=== PATIENT | male | born 1965 | race Hispanic/Latino ===

== ENCOUNTER 2018-03-30 08:46 | Emergency (ER) | payer OTHER ==
[2018-03-30] MEDS ORDERED: FENTANYL CITR 100 MCG/2 ML ONE (09:31)
[2018-03-30] MEDS ORDERED: INSULIN -REGULAR HUMAN 50 UNIT/0.5 ML ML ONE (09:31)
[2018-03-30] MEDS ORDERED: ONDANSETRON 4 MG/2 ML VIAL ONE (09:31)
[2018-03-30] MEDS ORDERED: PANTOPRAZOLE 40 MG INJ ONE ×2 (09:32→10:36)
[2018-03-30] MEDS ORDERED: NA CHLORIDE 0.9% 1,000 ML ONE (09:32)
[2018-03-30 09:56] LABS: Absolute Monocytes 0.8 K/uL (0.1-1.3); Absolute Neutrophil 5.3 K/uL (1.8-8.0); Basophils % 0.8 % (0-1.3); Eosinophils % 2.9 % (0-4.4); Hematocrit 21.3 % (39.6-49.0); Lymphocytes % 13.6 % (15.3-44.8); MCH 20.5 pg (27.0-35.0); MCV 68.5 fL (80-100); MPV 8.4 fL (7.6-11.3); Monocytes % 10.4 % (3.3-12.3); RBC Red Blood Cell Count 3.11 M/uL (4.33-5.43)
[2018-03-30 10:04] LABS: Protime INR 0.93
--- NOTE | 2018-03-30 10:18 | RAD REPORT ---
EXAM DESCRIPTION: RAD - Chest Single View - 03/30/2018 10:10 am CLINICAL HISTORY: Abdominal pain, abdominal distention, epigastric pain COMPARISON: May 2011 TECHNIQUE: AP portable chest image was obtained 1008 hours . FINDINGS: Lungs are clear. Heart and vasculature are normal. No measurable pleural effusion and no p neumothorax. No gross bony abnormality seen. No acute aortic findings suspected. IMPRESSION: No acute cardiopulmonary process. No significant interval change.
[2018-03-30 10:23] LABS: ALT/SGPT 11 U/L (12-78); AST/SGOT 15 U/L (15-37); Albumin 3.1 g/dL (3.4-5.0); Alkaline Phosphatase 103 U/L (45-117); BUN Blood Urea Nitrogen 22 mg/dL (7-18); Bicarbonate 26 mmol/L (21-32); Bilirubin Direct < 0.1 mg/dL (0-0.2); Bilirubin Total 0.2 mg/dL (0.2-1.0); CKMB Creatine Kinase MB 3.1 ng/mL (0.3-3.6); Creatine Phosphokinase 163 U/L (39-308); Lipase 169 U/L (73-393); Magnesium 2.1 mg/dL (1.8-2.4); Potassium 4.1 mmol/L (3.5-5.1); Protein, Total 6.4 g/dL (6.4-8.2); Sodium Level 135 mmol/L (136-145)
[2018-03-30 10:25] LABS: Glucose Level 423 mg/dL (74-106)
--- NOTE | 2018-03-30 10:55 | RAD REPORT ---
EXAM DESCRIPTION: US - Abdomen Exam Limited - 03/30/2018 10:15 am CLINICAL HISTORY: Abdominal pain, right upper quadrant pain COMPARISON: None. FINDINGS: No gallstones, sludge or other abnormalities within the gallbladder lumen. There is no wal l thickening or pericholecystic fluid. No common duct stone or biliary tree dilatation identified. IMPRESSION: Normal gallbladder and biliary tree ultrasound.
--- NOTE | 2018-03-30 10:57 | ER ---
Nurse's Notes [facility] Name: Maryam Whitfield Age: 53 yrs Sex: Male : 1965 Arrival Date: 03/30/2018 Time: 08:50 Bed 18 Private MD: None, None Diagnosis: Abdominal tenderness;Duodenitis with bleeding;Duodenal ulcer;Type 1 diabetes mellitus Presentation: 03/30 09:01 Presenting complaint: Patient states: c/o epigastric pain, abd pain X 1 week, described iw as burning pain, 6/10, +nausea, no vomiting or diarrhea, also has been feeling dizzy. Transition of care: patient was not received from another setting of care. Onset of symptoms was March 23, 2018. Risk Assessment: Do you want to hurt yourself or someone else? Patient reports no desire to harm self or others. Initial Sepsis Screen: Does the patient meet any 2 criteria? No. Patient's initial sepsis screen is negative. Does the patient have a suspected source of infection? No. Patient's initial sepsis screen is negative. Care prior to arrival: None. 09:01 Method Of Arrival: Ambulatory iw 09: Acuity: YA 3 iw Historical: - Allergies: 09:04 NKA; iw - Home Meds: 09:04 metformin 1,000 mg Oral TG24 1 tab once daily [Active]; glipizide 5 mg Oral tab 1 tab 2 iw times per day [Active]; pravastatin oral 5 mg oral twice a day [Active]; lisinopril 20 mg Oral tab twice a day [Active]; - PMHx: 09:04 Diabetes - NIDDM; Hypertension; Hyperlipidemia; iw - PSHx: 09:04 None; iw - Immunization history:: Adult Immunizations not up to date. - Social history:: Smoking status: Patient uses tobacco products, smokes one pack cigarettes per day. Patient uses alcohol, on a daily basis. claims drinking about a 6 pack/day. - Ebola Screening: : Patient negative for fever greater than or equal to 101.5 degrees Fahrenheit, and additional compatible Ebola Virus Disease symptoms Patient denies exposure to infectious person Patient denies travel to an Ebola-affected area in the 21 days before illness onset No symptoms or risks identified at this time. - Family history:: not pertinent. Screenin: Abuse screen: Denies threats or abuse. Nutritional screening: No deficits noted. em Tuberculosis screening: No symptoms or risk factors identified. Fall Risk None identified. Assessment: 09:25 General: Appears in no apparent distress. uncomfortable, Behavior is calm, cooperative. em Pain: Complains of pain in left upper quadrant and right upper quadrant and epigastric area Pain currently is 7 out of 10 on a pain scale. Pain began 1 week. Neuro: Level of Consciousness is awake, alert, Oriented to person, place, time, situation. Neuro: Reports dizziness. Cardiovascular: Capillary refill < 3 seconds Patient's skin is warm and dry. Respiratory: Airway is patent Respiratory effort is even, unlabored, Respiratory pattern is regular, symmetrical, Breath sounds are clear bilaterally. GI: Abdomen is round non-distended, Bowel sounds present X 4 quads. Abd is soft X 4 quads Abdomen is tender to palpation in left upper quadrant and right upper quadrant and epigastric area Patient currently denies bloody stool, nausea, rectal bleeding, vomiting. : No signs and/or symptoms were reported regarding the genitourinary system. EENT: No signs and/or symptoms were reported regarding the EENT system. Derm: Skin is intact, Skin is pale. Musculoskeletal: Range of motion: intact in all extremities. 09:45 Reassessment: Patient appears in no apparent distress at this time. I agree with above iw assessment by Daron Dolan LVN. 10:26 Reassessment: Patient appears in no apparent distress at this time. Patient and/or em family updated on plan of care and expected duration. Pain level reassessed. Patient is alert, oriented x 3, equal unlabored respirations, skin warm/dry/pink. finished drinking PO contrast, rates pain 0/10 Patient denies pain at this time. Patient states feeling better. 11:08 Reassessment: Patient appears in no apparent distress at this time. Patient and/or em family updated on plan of care and expected duration. Pain level reassessed. Patient is alert, oriented x 3, equal unlabored respirations, skin warm/dry/pink. Protonix drip initiated, 2nd IV started in left forearm. 11:45 Reassessment: RBC unit started at 50 cc/hr at 1130 and now infusing at 150 cc/hr. Lungs aa5 CTA, respirations even and unlabored. Skin is pale/warm/dry, A \T\ O x 3. See blood transfusion record in pt's chart for Vital Signs and further information. . 13:04 Reassessment: Patient appears in no apparent distress at this time. Patient and/or em family updated on plan of care and expected duration. Pain level reassessed. Dr. Fisher at bedside discussing POC Patient denies pain at this time. 13:10 Reassessment: Patient appears in no apparent distress at this time. Dr. Barker at em bedside. 14:06 Reassessment: Patient appears in no apparent distress at this time. blood transfusion em complete, Dr. Becerril notified, no new orders received. 14:39 Reassessment: unable to give report to nurse at [facility]. em 15:10 Reassessment: 1st unit of FFP started to RAC, pt in NAD, VSS, pt pale, family at bedside, see flowsheet for further charting. 15:45 Reassessment: FFP infusion completed prior to EMS transfer. iw 16:01 Reassessment: Patient appears in no apparent distress at this time. Patient and/or em family updated on plan of care and expected duration. Pain level reassessed. Patient is alert, oriented x 3, equal unlabored respirations, skin warm/dry/pink. report given to EMS, will transport to [facility]. Vital Signs: 09:02 BP 160 / 90; Pulse 96; Resp 18 S; Temp 97.8(TE); Pulse Ox 99% on R/A; Weight 90.72 kg; iw Height 5 ft. 10 in. (177.80 cm); Pain 6/10; 10:21 BP 140 / 81; Pulse 83; Resp 16; Pulse Ox 98% on R/A; em 11:07 BP 149 / 74; Pulse 87; Resp 16; Pulse Ox 98% on R/A; Pain 0/10; em 14:34 BP 153 / 86; Pulse 77; Resp 20; Temp 98.1; Pulse Ox 97% on R/A; Pain 0/10; em 15:37 BP 150 / 86; Pulse 72; Resp 18; Pulse Ox 99% on R/A; Pain 0/10; em 09:02 Body Mass Index 28.70 (90.72 kg, 177.80 cm) ED Course: 08:50 Patient arrived in ED. mr 08:51 None, None is Private Physician. mr 08:56 Daron Dolan LVN is Primary Nurse. em 09:02 Triage completed. iw 09:02 Arm band placed on. iw 09:11 Getachew Becerril MD is Attending Physician. ashley 09:25 Patient has correct armband on for positive identification. Placed in gown. Bed in low em position. Call light in reach. Adult w/ patient. 09:25 Served as a harness tier during rectal exam. em 09:40 Initial lab(s) drawn, by me, sent to lab. T\T\S collected, blood band applied to patient. em Inserted saline lock: 20 gauge in right forearm, using aseptic technique. Blood collected. 09:57 Ultrasound completed. Patient tolerated well. sg3 10:08 X-ray completed. Portable x-ray completed in exam room. Patient tolerated procedure ag1 well. 10:09 XRAY Chest (1 view) In Process Unspecified. EDMS 10:11 Urine collected: clean catch specimen, cloudy, landen colored, EKG done, by ED staff, jb1 reviewed by Getachew Becerril MD. 10:55 Regla Fisher MD is Hospitalizing Provider. ashley 11:[address] via stretcher. cw1 11:59 CT completed. Patient moved back from CT. cw1 14:00 Inserted saline lock: 20 gauge in right antecubital area, using aseptic technique. em Blood collected. 16:03 Patient transferred, IV remains in place. em Administered Medications: 09:48 Drug: ProTONIX 40 mg Route: IVP; Site: right forearm; iw 11:03 Follow up: Response: No adverse reaction em 09:48 Drug: fentaNYL (PF) 25 mcg Route: IVP; Site: right forearm; iw 11:04 Follow up: Response: No adverse reaction; Pain is decreased em 09:48 Drug: Zofran 4 mg Route: IVP; Site: right forearm; iw 11:03 Follow up: Response: No adverse reaction em 10:31 Drug: Insulin Regular Human 10 units {Co-Signature: em (Daron Dolan LVN).} Route: IVP; iw Site: right forearm; 10:54 Drug: ProTONIX 40 mg Route: IVP; Site: right forearm; em 14:04 Follow up: Response: No adverse reaction em 10:55 Drug: ProTONIX 8 mg/hr Route: IV; Rate: 25 ml/hr; Site: right forearm; em 14:01 Drug: Cipro 400 mg Volume: 200 ml; Route: IVPB; Infused Over: 60 mins; Site: right em antecubital; 15:17 Follow up: Response: No adverse reaction; IV Status: Completed infusion; IV Intake: em 200ml 14:01 Drug: Flagyl 500 mg Volume: 100 ml; Route: IVPB; Rate: 200 ml/hr; Infused Over: 30 em mins; Site: right antecubital; 15:04 Follow up: Response: No adverse reaction; IV Status: Completed infusion; IV Intake: em 100ml 14:12 Drug: fentaNYL (PF) 25 mcg Route: IVP; Site: right forearm; em Point of Care Testing: Blood Glucose: 09:24 Blood Glucose: 411 mg/dL; em 10:26 Blood Glucose: 380 mg/dL; em 11:31 Blood Glucose: 126 mg/dL; jb1 14:34 Blood Glucose: 171 mg/dL; em Ranges: Intake: 15:04 IV: 100ml; Total: 100ml. em 15:17 IV: 200ml; Total: 300ml. em Outcome: 10:56 Decision to Hospitalize by Provider. ashley 13:17 ER care complete, transfer ordered by . [facility] 16:03 Transferred by ground EMS to [facility], Transfer form completed. em X-rays sent w/ patient. 16:03 Condition: good 16:03 Instructed on the need for transfer, Demonstrated understanding of instructions. 16:04 Patient left the ED. em Signatures: Dispatcher [employer] Ernie Benson jb1 Getachew Becerril MD MD cha Rivera, Maria mr Munoz, Edgar, CERTIFIED JUVENILE PROBATION OFFICER CERTIFIED JUVENILE PROBATION OFFICER em Susu Luciano RN RN iw Calderon, Audri, RN RN Wendy Herr cw1 Donna Manzanares ag1 Rowan Wesley sg3 Daron Dolan CERTIFIED JUVENILE PROBATION OFFICER em Corrections: (The following items were deleted from the chart) 10:16 10:15 In radiology for Abdomen Limited+US.RAD.BRZ. EDMS sg3 10:40 09:02 BP 160 / 90; Pulse 96bpm; Resp 18bpm; Spontaneous; Pulse Ox 99% RA; 90.72 kg; iw Height 5 ft. 10 in.; BMI: 28.7; Pain 6/10; iw 13:04 09:25 Derm: Skin is intact, Skin is pink, warm \T\ dry. em em 13: 13:03 Reassessment: Patient appears in no apparent distress at this time. em em 15: 15:04 IV Status: Completed infusion em em
--- NOTE | 2018-03-30 10:57 | EDPHYS ---
Physician Documentation [facility] Name: Maryam Whitfield Age: 53 yrs Sex: Male : 1965 Arrival Date: 03/30/2018 Time: 08:50 Bed 18 Private MD: None, None ED Physician Getachew Becerril HPI: 03/30 09:32 This 53 yrs old Male presents to ER via Ambulatory with complaints of ashley Abdominal Pain. 09:32 The patient presents with abdominal pain. ashley Historical: - Allergies: 09:04 NKA; iw - Home Meds: 09:04 metformin 1,000 mg Oral TG24 1 tab once daily [Active]; glipizide 5 mg Oral tab 1 tab 2 iw times per day [Active]; pravastatin oral 5 mg oral twice a day [Active]; lisinopril 20 mg Oral tab twice a day [Active]; - PMHx: 09:04 Diabetes - NIDDM; Hypertension; Hyperlipidemia; iw - PSHx: 09:04 None; iw - Immunization history:: Adult Immunizations not up to date. - Social history:: Smoking status: Patient uses tobacco products, smokes one pack cigarettes per day. Patient uses alcohol, on a daily basis. claims drinking about a 6 pack/day. - Ebola Screening: : Patient negative for fever greater than or equal to 101.5 degrees Fahrenheit, and additional compatible Ebola Virus Disease symptoms Patient denies exposure to infectious person Patient denies travel to an Ebola-affected area in the 21 days before illness onset No symptoms or risks identified at this time. - Family history:: not pertinent. ROS: 09:32 Constitutional: Negative for fever, chills, and weight loss, Eyes: Negative for injury, ashley pain, redness, and discharge, ENT: Negative for injury, pain, and discharge, Neck: Negative for injury, pain, and swelling, Cardiovascular: Negative for chest pain, palpitations, and edema, Respiratory: Negative for shortness of breath, cough, wheezing, and pleuritic chest pain, Back: Negative for injury and pain, : Negative for injury, bleeding, discharge, and swelling, MS/Extremity: Negative for injury and deformity, Neuro: Negative for headache, weakness, numbness, tingling, and seizure, Psych: Negative for depression, anxiety, suicide ideation, homicidal ideation, and hallucinations, Allergy/Immunology: Negative for hives, rash, and allergies, Endocrine: Negative for neck swelling, polydipsia, polyuria, polyphagia, and marked weight changes, Hematologic/Lymphatic: Negative for swollen nodes, abnormal bleeding, and unusual bruising. 09:32 Abdomen/GI: Positive for abdominal pain, nausea and vomiting, abdominal cramps. 09:32 Skin: Positive for pallor. Exam: 09:32 Constitutional: This is a well developed, well nourished patient who is awake, alert, ashley and in no acute distress. Head/Face: Normocephalic, atraumatic. Eyes: Pupils equal round and reactive to light, extra-ocular motions intact. Lids and lashes normal. Conjunctiva and sclera are non-icteric and not injected. Cornea within normal limits. Periorbital areas with no swelling, redness, or edema. ENT: Nares patent. No nasal discharge, no septal abnormalities noted. Tympanic membranes are normal and external auditory canals are clear. Oropharynx with no redness, swelling, or masses, exudates, or evidence of obstruction, uvula midline. Mucous membranes moist. Neck: Trachea midline, no thyromegaly or masses palpated, and no cervical lymphadenopathy. Supple, full range of motion without nuchal rigidity, or vertebral point tenderness. No Meningismus. Chest/axilla: Normal chest wall appearance and motion. Nontender with no deformity. No lesions are appreciated. Cardiovascular: Regular rate and rhythm with a normal S1 and S2. No gallops, murmurs, or rubs. Normal PMI, no JVD. No pulse deficits. Respiratory: Lungs have equal breath sounds bilaterally, clear to auscultation and percussion. No rales, rhonchi or wheezes noted. No increased work of breathing, no retractions or nasal flaring. Back: No spinal tenderness. No costovertebral tenderness. Full range of motion. Male : Normal genitalia with no discharge or lesions. MS/ Extremity: Pulses equal, no cyanosis. Neurovascular intact. Full, normal range of motion. Neuro: Awake and alert, GCS 15, oriented to person, place, time, and situation. Cranial nerves II-XII grossly intact. Motor strength 5/5 in all extremities. Sensory grossly intact. Cerebellar exam normal. Normal gait. Psych: Awake, alert, with orientation to person, place and time. Behavior, mood, and affect are within normal limits. 09:32 Abdomen/GI: Inspection: distension, Bowel sounds: normal, Palpation: mild abdominal tenderness, in the epigastric area, right upper quadrant and left upper quadrant, Rectal exam: rectal tone normal, Stool: guaiac positive, black, hemorrhoid(s), are not appreciated, mass, is not appreciated, swelling, is not appreciated, tenderness, is not appreciated, fecal impaction, is not appreciated, the exam is chaperoned by the nurse, Liver: no appreciated palpable abnormalities, Hernia: not appreciated. Vital Signs: 09:02 BP 160 / 90; Pulse 96; Resp 18 S; Temp 97.8(TE); Pulse Ox 99% on R/A; Weight 90.72 kg; iw Height 5 ft. 10 in. (177.80 cm); Pain 6/10; 10:21 BP 140 / 81; Pulse 83; Resp 16; Pulse Ox 98% on R/A; em 11:07 BP 149 / 74; Pulse 87; Resp 16; Pulse Ox 98% on R/A; Pain 0/10; em 14:34 BP 153 / 86; Pulse 77; Resp 20; Temp 98.1; Pulse Ox 97% on R/A; Pain 0/10; em 15:37 BP 150 / 86; Pulse 72; Resp 18; Pulse Ox 99% on R/A; Pain 0/10; em 09:02 Body Mass Index 28.70 (90.72 kg, 177.80 cm) iw MDM: 09:11 Patient medically screened. [facility] 09:32 Data reviewed: vital signs, nurses notes, lab test result(s), EKG, radiologic studies, [facility] CT scan, plain films, ultrasound. 03/30 09:24 Order name: Occult Blood--Ancillary bd 03/30 09:31 Order name: Basic Metabolic Panel; Complete Time: 10:42 [facility] 03/30 09:31 Order name: CBC with Diff; Complete Time: 12:42 [facility] 03/30 09:31 Order name: Ckmb; Complete Time: 10:42 [facility] 03/30 09:31 Order name: CPK; Complete Time: 10:42 [facility] 03/30 09:31 Order name: LFT's; Complete Time: 10:42 [facility] 03/30 09:31 Order name: Magnesium; Complete Time: 10:42 [facility] 03/30 09:31 Order name: PT-INR; Complete Time: 10:42 03/30 09:31 Order name: Ptt, Activated; Complete Time: 10:42 03/30 09:31 Order name: Troponin (emerg Dept Use Only); Complete Time: 10:42 03/30 09:31 Order name: Lipase; Complete Time: 10:42 03/30 09:31 Order name: Type And Screen ashley 03/30 09:31 Order name: Urine Culture ashley 03/30 09:43 Order name: Urine Dipstick--Ancillary (enter results) 03/30 09:31 Order name: XRAY Chest (1 view); Complete Time: 10:42 ashley 03/30 09:31 Order name: US Abdomen Limited; Complete Time: 11:38 [facility] 03/30 09:31 Order name: CT Abd/Pelvis - W/Contrast [facility] 03/30 09:52 Order name: Bb Add On 03/30 09:58 Order name: CBC Smear Scan; Complete Time: 12:42 [facility] 03/30 10:36 Order name: Packed RBC Leukored -1 [facility] 03/30 11:41 Order name: ABO/RH no charge; Complete Time: 12:42 [facility] 03/30 12:51 Order name: CT; Complete Time: 13:13 [facility] 03/30 13:17 Order name: Bb Add On 03/30 09:31 Order name: EKG; Complete Time: 09:31 ashley 03/30 09:31 Order name: Cardiac monitoring; Complete Time: 09:36 03/30 09:31 Order name: EKG - Nurse/Tech; Complete Time: 10:12 03/30 09:31 Order name: IV Saline Lock; Complete Time: 10:12 03/30 09:31 Order name: Labs collected and sent; Complete Time: 10:12 03/30 09:31 Order name: O2 Per Protocol; Complete Time: 09:36 03/30 09:31 Order name: O2 Sat Monitoring; Complete Time: 09:36 03/30 09:31 Order name: Urine Dipstick-Ancillary (obtain specimen); Complete Time: 10:12 03/30 10:01 Order name: IV Saline Lock - Large Bore; Complete Time: 10:12 03/30 10:11 Order name: Transfuse; Complete Time: 12:18 [facility] 03/30 11:01 Order name: CONS Physician Consult EDMS Administered Medications: 09:48 Drug: ProTONIX 40 mg Route: IVP; Site: right forearm; iw 11:03 Follow up: Response: No adverse reaction em 09:48 Drug: fentaNYL (PF) 25 mcg Route: IVP; Site: right forearm; iw 11:04 Follow up: Response: No adverse reaction; Pain is decreased em 09:48 Drug: Zofran 4 mg Route: IVP; Site: right forearm; iw 11:03 Follow up: Response: No adverse reaction em 10:31 Drug: Insulin Regular Human 10 units {Co-Signature: em (Daron Nayloroz MARKETING DATABASE ANALYST).} Route: IVP; iw Site: right forearm; 10:54 Drug: ProTONIX 40 mg Route: IVP; Site: right forearm; em 14:04 Follow up: Response: No adverse reaction em 10:55 Drug: ProTONIX 8 mg/hr Route: IV; Rate: 25 ml/hr; Site: right forearm; em 14:01 Drug: Cipro 400 mg Volume: 200 ml; Route: IVPB; Infused Over: 60 mins; Site: right em antecubital; 15:17 Follow up: Response: No adverse reaction; IV Status: Completed infusion; IV Intake: em 200ml 14:01 Drug: Flagyl 500 mg Volume: 100 ml; Route: IVPB; Rate: 200 ml/hr; Infused Over: 30 em mins; Site: right antecubital; 15:04 Follow up: Response: No adverse reaction; IV Status: Completed infusion; IV Intake: em 100ml 14:12 Drug: fentaNYL (PF) 25 mcg Route: IVP; Site: right forearm; em Point of Care Testing: Blood Glucose: 09:24 Blood Glucose: 411 mg/dL; em 10:26 Blood Glucose: 380 mg/dL; em 11:31 Blood Glucose: 126 mg/dL; jb1 14:34 Blood Glucose: 171 mg/dL; em Ranges: Critical Glucose Levels:Adult <50 mg/dl or >400 mg/dl <40 mg/dl or >180 mg/dl Disposition: 03/30/18 13:17 Transfer ordered to [facility]. Diagnosis are Abdominal tenderness, Duodenitis with bleeding, Duodenal ulcer, Type 1 diabetes mellitus. - Reason for transfer: Higher level of care. - Accepting physician is to [facility]. - Condition is Fair. - Problem is new. - Symptoms have improved. Signatures: Dispatcher [employer] Getachew Antunez MD MD cha Munoz, Edgar, MARY ELLEN MARKETING DATABASE ANALYST em Susu Luciano RN RN iw Daron Dolan LVN em Corrections: (The following items were deleted from the chart) 13:15 10:56 Hospitalization Ordered by Regla Fisher MD for Inpatient Admission. Preliminary ashley diagnosis is Type 1 diabetes mellitus; Gastrointestinal hemorrhage, unspecified; Anemia, unspecified; Abdominal tenderness. Bed requested for Telemetry/MedSurg (Inpatient). Status is Inpatient Admission. Condition is Fair. Problem is new. Symptoms have improved. UTI on Admission? No. ashley 16:04 13:17 03/30/2018 13:17 Transfer ordered to [facility]. Diagnosis is em Abdominal tenderness; Duodenitis with bleeding; Duodenal ulcer; Type 1 diabetes mellitus. Reason for transfer: Higher level of care. Accepting physician is to [facility]. Condition is Fair. Problem is new. Symptoms have improved. ashley
[2018-03-30] MEDS ORDERED: PANTOPRAZOLE INJ 80 MG in NA CHLORIDE 0.9% 250 ML IV SCH (11:00)
[2018-03-30] MEDS ORDERED: GLUCAGON 1 MG/VIAL IM PRN (11:01)
[2018-03-30] MEDS ORDERED: D50W 25 GM/50 ML SYRINGE IV PRN (11:01)
[2018-03-30] MEDS ORDERED: NA CHLORIDE 0.9% 250 ML ONE ×2 (11:17→15:05)
[2018-03-30] MEDS ORDERED: INSULIN -REGULAR HUMAN 50 UNIT/0.5 ML ML SQ SCH (11:30)
[2018-03-30 11:45] LABS: Anisocytosis 1+; Blood Morphology Comment NOTED (NOT SEEN); Hypochromasia 1+; Platelet Estimate ADEQ; Urine White Blood Cell Casts OK
--- NOTE | 2018-03-30 12:51 | RAD REPORT ---
EXAM DESCRIPTION: CT - Abdomen Pelvis Wo Contrast - 03/30/2018 12:00 pm CLINICAL HISTORY: Abdominal pain, epigastric pain, history of diabetes COMPARISON: None. TECHNIQUE: Axial [address] imaging of the abdomen and pelvis was performed without IV contrast. No IV contrast was given because of allergy, abnormal renal function, patient refusal or physician re quest. Oral contrast was given. All CT scans are performed using dose optimization technique as appropriate and may include automated exposure control or mA/KV adjustment according to patient size. FINDINGS: No suspicious findings in the lung bases. The liver, spleen and pancreas show no suspicious findings on non-contrast imaging. Gallbladder and b iliary tree are also without suspicious finding. No hydronephrosis or suspicious renal mass. No significant adrenal finding. Isodense renal masses an d pyelonephritis cannot be excluded in the absence of IV contrast. The urinary bladder is without sig nificant finding. Prostate gland and seminal vesicles within normal range. Incidental left renal cyst . There is pronounced circumferential wall thickening of the gastric antrum and duodenal bulb. Proximal stomach rodrigues are unremarkable. Air along the right lateral margin of the gastric/duodenal wall thic kening could be air trapped within a fold. Pneumatosis from ulceration cannot be excluded. No free ai r or free fluid. No extravasation of contrast. No gastric outlet obstruction is present. Oral CT cont rast has reached the transverse colon. No acute large or small bowel finding otherwise noted. No gucci ia, mass or bulky lymphadenopathy. Advanced disc and bony degenerative change present. IMPRESSION: Pronounced circumferential wall thickening of the gastric antrum and duodenal bulb from gastritis/duodenitis most likely. Malignancy cannot be excluded. Air density is seen near the antrum duodenal bulb junction. This may be an trapped air within a fold or possibly pneumatosis from ulceration. Full assessment is limited is the absence of IV contrast.
[2018-03-30] MEDS ORDERED: CIPROFLOXACIN 400mg IV 400 MG/200 ML BAG IV ONE (13:33)
[2018-03-30] MEDS ORDERED: METRONIDAZOLE 500mg IVPB 500 MG/100 ML BAG IV ONE (13:34)
--- NOTE | 2018-03-30 13:49 | P.CNS ---
Date of Consult: 03/30/18 HPI: 53 y/o M with Significant Pmhx of DM, HTN, HLP who presented to the hospital with epigastric pain that started 1 week and got progressively worse. Pt states the pain is at 2/10 in AM when he wakes up but as days goes by his pain is worse and 10/10 at night time. It has now started burning him as well. Pt also complains of having black tarry stool for over 1 months and states he did not much pay attention to it as he thought it was from the food. Pt also has some nausea but no vomiting noted. Pt has been taking 3 motrin for pain daily since past 4 to 5 days. Has been dizzy and fatigue for over 1 week now. No other complains to offer. PE: Vitals: Stable. Gen: Acute distress, AAOx 3, Appears pale and lying in bed in pain CVS: RRR, No murmer noted Lungs: CTABL, No W/R/R Abd: Soft, Non distented, + BS. Tenderness in the Epigastric Area. No rebound or guarding noted. Ext: + Pulse and -Edema Labs: 03/30/18 10:00: ABO/Rh O POSITIVE 03/30/18 09:40: ABO/Rh O POSITIVE, Antibody Screen Negative, Crossmatch See Detail 03/30/18 09:40: Rapid Troponin I 0.02 03/30/18 09:40: PT 11.0, INR 0.93, APTT 26.8 03/30/18 09:40: WBC 7.4, RBC 3.11 L, Hgb 6.4 L*, Hct 21.3 L, MCV 68.5 L, MCH 20.5 L, MCHC 29.9 L, RDW 20.9 H, Plt Count 270, MPV 8.4, Neutrophils % 72.3, Lymphocytes % 13.6 L, Monocytes % 10.4, Eosinophils % 2.9, Basophils % 0.8, Absolute Neutrophils 5.3, Absolute Lymphocytes 1.0, Absolute Monocytes 0.8, Absolute Eosinophils 0.2, Absolute Basophils 0.1, Hypochromasia 1+, Anisocytosis 1+, Microcytosis 1+, Morphology Comment Noted 03/30/18 09:40: Sodium 135 L, Potassium 4.1, Chloride 105, Carbon Dioxide 26, BUN 22 H, Creatinine 1.30, Estimated GFR 58 L, Glucose 423 H*, Calcium 8.3 L, Magnesium 2.1, Total Bilirubin 0.2, Direct Bilirubin < 0.1, AST 15, ALT 11 L, Alkaline Phosphatase 103, Creatine Kinase 163, CK-MB (CK-2) 3.1, Serum Total Protein 6.4, Albumin 3.1 L, Globulin 3.3, Albumin/Globulin Ratio 0.9 L, Lipase 169 Assessment/Plan A 53 y/o M with Significant pmhx with Duodenal Ulcer with possible perforation and active bleeding. Most Likely PUD with worsening from NSAIDs. 1. Duodenal Ulcer: Most likely active bleeding. GI not available at this time for EGD. Patient will be needed to transfer out to [facility] for further care. IV fluids, Protonix and blood transfusion till then. Surgery was also consulted. No surgical intervention at this time as no acute abdomen and no free air under the diaphragm noted. 2. Acute Blood loss anemia: Transfusion as needed 3. HTN 4. HLP 5. DM type 2 Dispo: Transfer to Tertiary center with GI coverage.
[2018-03-30 13:55] LABS: Urine Blood NEGATIVE (NEG); Urine Glucose 3+ (NEG); Urine Protein NEGATIVE (NEG); Urine Specific Gravity 1.015 (1.005-1.030); Urine pH 5.5 (5.0-7.0)
--- NOTE | 2018-03-30 14:49 | CON ---
Date of Consultation: 03/30/2018 Brief History Of Present Illness: The patient is a 53-year-old male, who presents with fami ly members, who speak Estonian. He is Swedish only speaking. He states that he has had worsening abd ominal pain beginning approximately 1 day ago, which was in the epigastric area associated with some weakness and some nausea. No vomiting. He has been having similar episodes before off and on of the abdominal pain over the past week. He has been taking increased amounts of Motrin to try to control this pain. He states that for the past 2 months and half, he has had melenic black tarry stools. Liza reyez has not sought medical attention for this and continues to medicate with Motrin and other over-the- counter NSAIDs 3-4 times per day. He has no other associated complaints other than the above stated. Past Medical History: Significant diabetes, hypertension, and high cholesterol. Past Surgical History: Denies any surgical history. Allergies: NO KNOWN DRUG ALLERGIES. Medications: None. Social History: He denies smoking, alcohol, or recreational drug use. He takes large amounts of NSA IDs as described above. Family History: Reviewed and noncontributory. Physical Examination: General: At the time of my examination, he is awake, alert, oriented. Psychiatric: He is appropriate and conversive. HEENT: He is normocephalic. Sclerae are anicteric. Mucous membranes moist. Oropharynx is clear. Neck: Supple. No JVD. Chest: Normal expansion and excursion. Cardiovascular: Regular rate and rhythm. Pulmonary: Clear to auscultation bilaterally. Abdomen: Soft, nontender, nondistended. No rebound. No guarding. No focal peritonitis. Abdomen: Obese. Essentially benign exam. Extremities: No clubbing, cyanosis, or edema. Skin: Warm and dry. Laboratory Data: Reveals white blood count 7.4, hemoglobin 6.4, hematocrit 28.3, platelet count of 2 70. PT 11.0, INR 0.93, PTT 26.8. Sodium 135, potassium 4.1, chloride 105, carbon dioxide 26, BUN 22, creatinine 1.3, his glucose is 423, calcium 8.3, magnesium 2.12. Total bilirubin 0.2, AST 15, ALT 1 1, alk phos 103. His lipase is 169. He had a CT scan performed of the abdomen and pelvis, officiall y read as pronounced circumferential wall thickening of the gastric antrum and duodenal bulb from gas tritis/duodenitis. Most likely, malignancy cannot be excluded. Air density is seen in the antrum an d duodenal bulb junction. There maybe air trapped within the fold or possibly pneumatosis from ulcer ation. Assessment And Plan: This is a 53-year-old male, who presents with likely bleeding duodenal ulcer in the context of taking NSAIDs in his history. This seems to be an acute on chronic situation. 1.IV fluid hydration. 2.Resuscitation with blood and blood products and hemodynamic monitoring. 3.I will recommend a GI consult for emergent endoscopy and control of bleeding, and unfortunately we did not have a GI consultation available in the weekend on an emergent basis, and therefore the benny ent will likely be transferred to another facility where he has GI capabilities. I have explained th e risks, benefits, and alternatives of the above stated plan and the patient may proceed as indicated . Thank you for this interesting consultation. AYUSH/ZAKIA Voice ID: [id number] Report ID: [id number]
--- NOTE | 2018-03-31 06:54 | EKG ---
Test Date: 2018-03-30 Test Time: 09:47:54 Seafood Fisherman: JULIEN MEASUREMENT RESULTS: Intervals: Rate: 93 VT: 150 QRSD: 94 QT: 384 QTc: 477 [place]: P: 56 VT: 150 QRS: 16 T: 172 INTERPRETIVE STATEMENTS: Normal sinus rhythm T wave abnormality, consider lateral ischemia Prolonged QT Abnormal ECG Compared to ECG 05/07/2011 20:03:14 Possible ischemia now present Prolonged QT interval now present T-wave abnormality still present Electronically Signed On 03-31-18 06:53:00 CDT by Cristiano Pedersen
== END 2018-03-30 16:04 | disposition short-term general hospital (02) ==
LOC: ER 08:46 → ERHOLD 11:07 → UNDOADMIN 11:07 → ER 16:04
PROC: 30233L1 Transfusion of Nonautologous Fresh Plasma into Peripheral Vein, Percutaneous Approach (ICD-10-PCS; principal; 2018-03-30)
PROC: 30233N1 Transfusion of Nonautologous Red Blood Cells into Peripheral Vein, Percutaneous Approach (ICD-10-PCS; 2018-03-30)
DX: K29.81 Duodenitis with bleeding (principal); K26.9 Duodenal ulcer, unspecified as acute or chronic, without hemorrhage or perforation; E10.9 Type 1 diabetes mellitus without complications; I10 Essential (primary) hypertension; F17.210 Nicotine dependence, cigarettes, uncomplicated
CPT/HCPCS: 36415; 36430; 71045; 74176; 76705; 80048; 80076; 81003; 82272; 82550; 82553; 82962; 83690; 83735; 84484; 85025; 85610; 85730; 86850; 86900; 86901; 87086; 87088; 93005; 96365; 96368; 96375; 99285; C9113; J0744; J2405; J3010; J7030; P9016; P9059

== ENCOUNTER 2019-11-18 23:03 | Emergency (ER) | payer OTHER ==
--- OUTSIDE RECORDS SUMMARY | 2019-11-18 23:04 | XMS REPORT ---
:1965 Demographics Address [address] [place] [address] Email Address Preferred Language Unknown Marital Status Unknown Yazidi Affiliation Unknown Race Unknown Additional Race(s) Unavailable Ethnic Group Unknown Author Organization [facility] Address [address] [place] [address] [place] [id number] Care Team Providers Name Role Phone MILAGROSSENAIT METZRenetta Unavailable Unavailable Problems This patient has no known problems. Allergies, Adverse Reactions, Alerts This patient has no known allergies or adverse reactions. Medications This patient has no known medications. Results Test Description Test Time Test Comments Text Results Atomic Results Result Comments TISSUE EXAM 2018-04-04 09:09:00 Surgical Pathology Report Case: [id number] Authorizing Provider: Jesus Alberto Christian, Collected: 03/31/2018 0950 Ordering Location: [address] Received: 03/31/2018 1533 Service Pathologist: Oscar Rosario MD Specimens: A) - Ulcer, gastric bx B) - Biopsy, Gastric, random r/o h. pylori PART A GASTRIC BIOPSY FOR SUSPECTED ULCER:ACTIVE CHRONIC GASTRITIS WITH INTESTINAL METAPLASIA AND ULCERATION.NEGATIVE FOR DYSPLASIA OR INVASIVE CARCINOMA.WARTHIN STARRY STAIN FOR HELICOBACTER IS NEGATIVE.IMMUNOSTAIN FOR HELICOBACTER IS NEGATIVE.SPECIAL STAINS FOR FUNGAL ORGANISMS (GMS, PAS) ARE NEGATIVE.PART B RANDOM GASTRIC BIOPSY:ACTIVE CHRONIC GASTRITIS.WARTHIN STARRY STAIN FOR HELICOBACTER IS NEGATIVE.IMMUNOSTAINS FOR HELICOBACTER IS NEGATIVE. Signing Pathologist Direct Phone Line: [phone] signed by Oscar Rosario MD on 04/04/2018 at 9:09 AMPreliminary result electronically signed by Oscar Rosario MD on 04/03/2018 at 10:25 [id number], [id number], [id number] bleed, rule out H. Pylori A. Gastric ulcer biopsy. B. Random gastric biopsy Specimen is received in two containers of formalin both labeled with the patient's information.Specimen A: Labeled "gastric ulcer biopsy" consists of multiple fragments of starr tissue ranging from 0.1 to 0.5 cm, submitted in A1.Specimen B: Labeled "random gastric biopsy" consists of multiple small fragments of starr tissue ranging from less than 0.1 to 0.3 cm, submitted in B1. CG/ew PERFORMED.The following special studies were performed on this case and the interpretation is incorporated in the diagnostic report above:BLOCK A1- GMS, PAS, LAURA GARCIA, HELICOBACTER IMMUNOSTAINBLOCK B1- LAURA GARCIA, HELICOBACTER IMMUNOSTAINThe immunohistochemistry test was developed and its performance characteristics determined by [facility]. It has not been cleared or approved by the U.S. Food and Drug Administration. The FDA has determined that such clearance or approval is not necessary. The test is used for clinical purposes. It should not be regarded as investigational or for research. This laboratory is certified under the Clinical Laboratory Improvement Amendments of 1988 (CLIA-88) as qualified to perform high complexity clinical laboratory testing. PERIPHERAL BLOOD SMEAR - PATHOLOGIST REVIEW 2018-03-31 14:15:00 Test Item Value Reference Range Comments [facility]IPHERAL SMR REVIEW [facility] (test Cell counts confirmed. hbqo=6107) [id number] ([facility]) (test Madelyn Franco M.D. (electronic nyce=4212) signature) POCT-GLUCOSE [id number] 12:34:00 Test Item Value Reference Range Comments POC-GLUCOSE METER ([facility]) 194 mg/dL 70-110 TESTED AT [facility] [address] [facility] (test dkef=7812) [facility] [address] POCT-GLUCOSE [id number] 10:43:00 Test Item Value Reference Range Comments POC-GLUCOSE METER ([facility]) 205 mg/dL 70-110 TESTED AT [facility] [address] [facility] (test ahob=2017) [facility] [address] HEMOGLOBIN [id number] 08:47:00 Test Item Value Reference Range Comments HEMOGLOBIN A1C ([facility]) (test gehk=333) 8.4 % 4.3-6.1 [id number] 08:25:00 Test Item Value Reference Range Comments HAPTOGLOBIN ([facility]) (test ipli=576) 165 mg/dL 14-258 POCT-GLUCOSE [id number] 08:10:00 Test Item Value Reference Range Comments POC-GLUCOSE METER ([facility]AKER) 174 mg/dL 70-110 TESTED AT [facility] [address] [facility] (test nvzb=0436) [facility] [address] CBC W/PLT COUNT & AUTO [id number] 07:36:00 Test Item Value Reference Range Comments WHITE BLOOD CELL COUNT (BEAKER) (test buee=523) 4.9 K/ L 3.5-10.5 RED BLOOD CELL COUNT (BEAKER) (test nggr=942) 3.58 M/ L 4.63-6.08 HEMOGLOBIN (BEAKER) (test lnpy=737) 8.4 GM/DL 13.7-17.5 HEMATOCRIT (BEAKER) (test bzfq=634) 27.2 % 40.1-51.0 MEAN CORPUSCULAR VOLUME (BEAKER) (test ucpn=364) 76.0 fL 79.0-92.2 MEAN CORPUSCULAR HEMOGLOBIN (BEAKER) (test 23.5 pg 25.7-32.2 ubpv=565) MEAN CORPUSCULAR HEMOGLOBIN CONC (BEAKER) (test 30.9 GM/DL 32.3-36.5 lqvb=514) RED CELL DISTRIBUTION WIDTH (BEAKER) (test 19.4 % 11.6-14.4 nwbn=192) PLATELET COUNT (BEAKER) (test aqgo=052) 241 K/CU MM 150-450 MEAN PLATELET VOLUME (BEAKER) (test pcvy=874) 10.3 fL 9.4-12.4 NUCLEATED RED BLOOD CELLS (BEAKER) (test 0 /100 WBC 0-0 etek=650) NEUTROPHILS RELATIVE PERCENT (BEAKER) (test 62 % npfi=813) LYMPHOCYTES RELATIVE PERCENT (BEAKER) (test 21 % qber=367) MONOCYTES RELATIVE PERCENT (BEAKER) (test 11 % cxip=715) EOSINOPHILS RELATIVE PERCENT (BEAKER) (test 5 % oxtp=007) BASOPHILS RELATIVE PERCENT (BEAKER) (test 1 % bydn=731) NEUTROPHILS ABSOLUTE COUNT (BEAKER) (test 3.07 K/ L 1.78-5.38 kdxe=125) LYMPHOCYTES ABSOLUTE COUNT (BEAKER) (test 1.05 K/ L 1.32-3.57 ozfu=390) MONOCYTES ABSOLUTE COUNT (BEAKER) (test 0.52 K/ L 0.30-0.82 eodx=004) EOSINOPHILS ABSOLUTE COUNT (BEAKER) (test 0.25 K/ L 0.04-0.54 xiit=052) BASOPHILS ABSOLUTE COUNT (BEAKER) (test 0.03 K/ L 0.01-0.08 fbxg=818) IMMATURE GRANULOCYTES-RELATIVE PERCENT (BEAKER) 0 % 0-1 (test dzbx=9192) IRON, TIBC, % SAT. (WITHOUT FERRITIN)2018-03-31 07:20:00 Test Item Value Reference Range Comments IRON (BEAKER) (test awcd=595) 17 ug/dL 40-160 TOTAL IRON BINDING CAPACITY (BEAKER) (test 395 ug/dL 250-450 yixa=144) IRON % SATURATION (2) (BEAKER) (test pxcl=9195) 4 % 20-55 [id number] 07:16:00 Test Item Value Reference Range Comments FERRITIN (BEAKER) (test wsow=970) 11 ng/mL 5-275 LACTATE DEHYDROGENASE (LDH)2018-03-31 07:05:00 Test Item Value Reference Range Comments LACTATE DEHYDROGENASE (BEAKER) (test zgev=071) 166 U/L 125-220 HEMOGLOBIN AND [id number] 06:38:00 Test Item Value Reference Range Comments HEMOGLOBIN (BEAKER) (test cxly=636) 8.3 GM/DL 13.7-17.5 HEMATOCRIT (BEAKER) (test lblp=414) 26.8 % 40.1-51.0 POCT-GLUCOSE [id number] 06:15:00 Test Item Value Reference Range Comments POC-GLUCOSE METER (BEAKER) 183 mg/dL 70-110 TESTED AT [address] (test ojvr=9894) [facility] [address] POCT-GLUCOSE [id number] 21:58:00 Test Item Value Reference Range Comments POC-GLUCOSE METER (BEAKER) 254 mg/dL 70-110 TESTED AT [address] (test roiw=6956) [facility] [address] PROTHROMBIN [id number] 20:06:00 Test Item Value Reference Range Comments PROTIME (BEAKER) (test jtxh=227) 14.3 seconds 11.7-14.7 INR (BEAKER) (test nkdh=765) 1.1 <=5.9 RECOMMENDED COUMADIN/WARFARIN INR THERAPY RANGESSTANDARD DOSE: 2.0 - 3.0 Includes: PROPHYLAXIS forvenous thrombosis, systemic embolization; TREATMENT for venous thrombosis and/or pulmonary embolus.HIGH RISK: Target INR is 2.5-3.5 for patients with mechanical heart valves.HEPATIC FUNCTION [id number] 19:25 :00 Test Item Value Reference Range Comments TOTAL PROTEIN (BEAKER) (test tzcy=495) 5.9 gm/dL 6.0-8.3 ALBUMIN (BEAKER) (test afcq=5531) 3.5 g/dL 3.5-5.0 BILIRUBIN TOTAL (BEAKER) (test pxtr=134) 0.5 mg/dL 0.2-1.2 BILIRUBIN DIRECT (BEAKER) (test rkoi=140) 0.2 mg/dL 0.1-0.5 ALKALINE PHOSPHATASE (BEAKER) (test vdup=386) 80 U/L 40-150 AST (SGOT) (BEAKER) (test hmae=265) 12 U/L 5-34 ALT (SGPT) (BEAKER) (test owlp=891) 6 U/L 6-55 BASIC METABOLIC [id number] 19:25:00 Test Item Value Reference Range Comments SODIUM (BEAKER) (test 137 meq/L 136-145 ukwg=239) POTASSIUM (BEAKER) (test 4.1 meq/L 3.5-5.1 uhgu=226) CHLORIDE (BEAKER) (test 108 meq/L 98-107 frro=066) CO2 (BEAKER) (test 23 meq/L 22-29 fqdt=422) BLOOD UREA NITROGEN 14 mg/dL 7-21 (BEAKER) (test qaxn=066) CREATININE (BEAKER) (test 0.72 mg/dL 0.57-1.25 pwpn=771) GLUCOSE RANDOM (BEAKER) 163 mg/dL 70-105 (test ptje=749) CALCIUM (BEAKER) (test 8.2 mg/dL 8.4-10.2 mbod=129) EGFR (BEAKER) (test 114 mL/min/1.73 sq m ESTIMATED GFR IS NOT enng=3465) ACCURATE CREATININE CLEARANCE IN PREDICTING GLOMERULAR FILTRATION RATE. ESTIMATED GFR IS NOT APPLICABLE FOR DIALYSIS PATIENTS. CBC W/PLT COUNT & AUTO [id number] 19:16:00 Test Item Value Reference Range Comments WHITE BLOOD CELL COUNT (BEAKER) (test bxbu=617) 5.2 K/ L 3.5-10.5 RED BLOOD CELL COUNT (BEAKER) (test cwue=022) 3.02 M/ L 4.63-6.08 HEMOGLOBIN (BEAKER) (test caia=968) 6.6 GM/DL 13.7-17.5 HEMATOCRIT (BEAKER) (test imvl=490) 22.6 % 40.1-51.0 MEAN CORPUSCULAR VOLUME (BEAKER) (test juve=481) 74.8 fL 79.0-92.2 MEAN CORPUSCULAR HEMOGLOBIN (BEAKER) (test 21.9 pg 25.7-32.2 ibbs=262) MEAN CORPUSCULAR HEMOGLOBIN CONC (BEAKER) (test 29.2 GM/DL 32.3-36.5 aetv=851) RED CELL DISTRIBUTION WIDTH (BEAKER) (test 19.7 % 11.6-14.4 zykp=046) PLATELET COUNT (BEAKER) (test ousd=250) 234 K/CU MM 150-450 MEAN PLATELET VOLUME (BEAKER) (test egdx=573) 10.3 fL 9.4-12.4 NUCLEATED RED BLOOD CELLS (BEAKER) (test 0 /100 WBC 0-0 pcuc=671) NEUTROPHILS RELATIVE PERCENT (BEAKER) (test 63 % dsdo=781) LYMPHOCYTES RELATIVE PERCENT (BEAKER) (test 23 % lrvw=190) MONOCYTES RELATIVE PERCENT (BEAKER) (test 10 % goyv=662) EOSINOPHILS RELATIVE PERCENT (BEAKER) (test 4 % faei=410) BASOPHILS RELATIVE PERCENT (BEAKER) (test 0 % gcxo=100) NEUTROPHILS ABSOLUTE COUNT (BEAKER) (test 3.29 K/ L 1.78-5.38 jqcb=655) LYMPHOCYTES ABSOLUTE COUNT (BEAKER) (test 1.18 K/ L 1.32-3.57 kaxi=191) MONOCYTES ABSOLUTE COUNT (BEAKER) (test 0.52 K/ L 0.30-0.82 qhrm=950) EOSINOPHILS ABSOLUTE COUNT (BEAKER) (test 0.21 K/ L 0.04-0.54 qvtg=673) BASOPHILS ABSOLUTE COUNT (BEAKER) (test 0.02 K/ L 0.01-0.08 aclc=813) IMMATURE GRANULOCYTES-RELATIVE PERCENT (BEAKER) 0 % 0-1 (test decy=2167)
[2019-11-18] MEDS ORDERED: LIDOCAINE 1% MPF 5 ML VIAL ONE (23:34)
[2019-11-18] MEDS ORDERED: TETANUS & DIPHTHERIA TOX,ADULT 0.5 ML VIAL ONE (23:34)
--- NOTE | 2019-11-18 23:43 | ER ---
Nurse's Notes [facility] Name: Maryam Whitfield Age: 54 yrs Sex: Male : 1965 Arrival Date: 11/18/2019 Time: 23:03 Bed 26 Private MD: Diagnosis: Superficial laceration of right dorsal thumb Presentation: 11/18 23:13 Presenting complaint: Patient states: he was working on a machine and somehow cut the aa1 top of his R thumb. Transition of care: patient was not received from another setting of care. Complicating Factors: There are no complicating factors for this patient. Onset of symptoms was November 18, 2019. Risk Assessment: Do you want to hurt yourself or someone else? Patient reports no desire to harm self or others. Initial Sepsis Screen: Does the patient meet any 2 criteria? HR > 90 bpm. Does the patient have a suspected source of infection? Yes: Skin breakdown/wound. Care prior to arrival: None. 23:13 Method Of Arrival: Ambulatory aa1 23:13 Acuity: YA 4 aa1 Triage Assessment: 23:14 General: Appears in no apparent distress. comfortable, Behavior is calm, cooperative, aa1 appropriate for age. Pain: Denies pain. Historical: - Allergies: 23:14 NKA; aa1 - PMHx: 23:14 Hyperlipidemia; Hypertension; Diabetes - IDDM; aa1 - PSHx: 23:14 None; aa1 - Immunization history:: Last tetanus immunization: unknown. - Coronavirus screen:: The patient has NOT traveled to [place] in the past 14 days. Proceed with normal triage process as indicated. - Social history:: Smoking status: Patient reports the use of cigarette tobacco products, smokes one-half pack cigarettes per day. - Family history:: not pertinent. - Ebola Screening: : No symptoms or risks identified at this time. - Hospitalizations: : No recent hospitalization is reported. Screenin:24 Abuse screen: Denies threats or abuse. Denies injuries from another. Nutritional ch screening: No deficits noted. Tuberculosis screening: No symptoms or risk factors identified. Fall Risk None identified. Assessment: 23:24 General: Appears in no apparent distress. comfortable, Behavior is calm, cooperative, ch appropriate for age. Pain: Complains of pain in dorsal aspect of distal phalanx of right thumb Pain currently is 3 out of 10 on a pain scale. Neuro: No deficits noted. Cardiovascular: Denies chest pain, Clubbing of nail beds is present Patient's skin is warm and dry. Respiratory: Airway is patent Respiratory effort is even, unlabored. GI: No signs and/or symptoms were reported involving the gastrointestinal system. : No signs and/or symptoms were reported regarding the genitourinary system. Derm: Skin is normal. Musculoskeletal: Circulation, motion, and sensation intact. Capillary refill < 3 seconds, in bilateral fingers. Range of motion: intact in all extremities. Injury Description: Laceration sustained to dorsal aspect of distal phalanx of right thumb is clean, 0.5 to 2.5 cm long, bleeding moderately, was sustained 30-60 minutes ago. is bleeding moderately a dressing was applied. 23:45 Reassessment: Patient appears in no apparent distress at this time. Patient and/or family updated on plan of care and expected duration. Pain level reassessed. Patient is alert, oriented x 3, equal unlabored respirations, skin warm/dry/pink. Patient states feeling better. Patient states symptoms have improved. Vital Signs: 23:14 BP 168 / 108; Pulse 96; Resp 18; Temp 97.3; Pulse Ox 98% on R/A; Weight 90.72 kg; aa1 Height 5 ft. 10 in. (177.80 cm); Pain 0/10; 23:45 BP 165 / 93; Pulse 90; Resp 18; Temp 97.3; Pulse Ox 96% on R/A; Pain 0/10; ch 23:14 Body Mass Index 28.70 (90.72 kg, 177.80 cm) aa1 ED Course: 23:03 Patient arrived in ED. ds1 23:12 Renny Robertson MD is Attending Physician. rn 23:14 Triage completed. aa1 23:14 Arm band placed on left wrist. aa1 23:24 Blanquita Singleton, REID is Primary Nurse. ch 23:24 No apparent distress. Resting quietly. ch 23:24 Patient has correct armband on for positive identification. Bed in low position. Call light in reach. Side rails up X 1. Pulse ox on. NIBP on. Warm blanket given. Verbal reassurance given. 23:24 Assist provider with laceration repair on dorsal aspect of distal phalanx of right thumb that was 2.5 cm. or less using sutures. Set up tray. Performed by Renny Robertson MD Patient tolerated well. Patient did not have IV access during this emergency room visit. 23:45 Assist provider with laceration repair Dressed with 4X4s, Kerlix, Neosporin. Wound ch care: to laceration located on dorsal aspect of distal phalanx of right thumb was cleaned with Betadine, Patient tolerated well. Administered Medications: 23:30 Drug: Lidocaine (1 %) 1 vials Volume: 5 ml; Route: Infiltration; 23:44 Follow up: Response: No adverse reaction; Marked relief of symptoms 23:30 Drug: Tetanus-Diphtheria Toxoid Adult 0.5 ml {Snout Puller: [employer]. Exp: 09/04/2021. Lot #: [id number]. } Route: IM; Site: left deltoid; 23:44 Follow up: Response: No adverse reaction 23:44 Drug: Augmentin 875 mg Route: PO; 23:44 Follow up: Response: No adverse reaction; Medication administered at discharge. Outcome: 23:42 Discharge ordered by . rn 23:45 Discharged to home ambulatory. 23:45 Condition: improved 23:45 Discharge instructions given to patient, Instructed on discharge instructions, follow up and referral plans. medication usage, wound care, Demonstrated understanding of instructions, follow-up care, medications, wound care, Prescriptions given X 1. 23:58 Patient left the ED. Signatures: Blanquita Singleton RN RN Ilene Myles RN RN aa1 Celeste Farmer ds1 Renny Robertson MD MD rn
--- NOTE | 2019-11-18 23:44 | EDPHYS ---
Physician Documentation [facility] Name: Maryam Whitfield Age: 54 yrs Sex: Male : 1965 Arrival Date: 11/18/2019 Time: 23:03 Bed 26 Private MD: ED Physician Renny Robertson HPI: 11/18 23:35 This 54 yrs old Male presents to ER via Ambulatory with complaints of rn Laceration - to Thumb. 23:35 The patient has a laceration related to: working, occurred at work, and there are no rn complicating factors. The laceration(s) is(are) located on the dorsal aspect of distal phalanx of right thumb. Onset: The symptoms/episode began/occurred just prior to arrival. The patient has not experienced similar symptoms in the past. 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 Is diabetic. . Historical: - Allergies: 23:14 NKA; aa1 - PMHx: 23:14 Hyperlipidemia; Hypertension; Diabetes - IDDM; aa1 - PSHx: 23:14 None; aa1 - Immunization history:: Last tetanus immunization: unknown. - Coronavirus screen:: The patient has NOT traveled to [place] in the past 14 days. Proceed with normal triage process as indicated. - Social history:: Smoking status: Patient reports the use of cigarette tobacco products, smokes one-half pack cigarettes per day. - Family history:: not pertinent. - Ebola Screening: : No symptoms or risks identified at this time. - Hospitalizations: : No recent hospitalization is reported. ROS: 23:35 Constitutional: Negative for fever, chills, and weight loss, MS/Extremity: + laceration rn right thumb Exam: 23:35 Constitutional: This is a well developed, well nourished patient who is awake, alert, rn and in no acute distress. MS/ Extremity: Pulses equal, no cyanosis. Neurovascular intact. Full, normal range of motion. Equal circumference. 2 cm superficial and linear laceration to right thumb, IP joint. + central small venous bleed, no arterial bleeding, easily stopped with focal pressure application. Does not extend past nail edge. Vital Signs: 23:14 BP 168 / 108; Pulse 96; Resp 18; Temp 97.3; Pulse Ox 98% on R/A; Weight 90.72 kg; aa1 Height 5 ft. 10 in. (177.80 cm); Pain 0/10; 23:45 BP 165 / 93; Pulse 90; Resp 18; Temp 97.3; Pulse Ox 96% on R/A; Pain 0/10; ch 23:14 Body Mass Index 28.70 (90.72 kg, 177.80 cm) aa1 Laceration: 23:35 Wound Repair of 2cm ( 0.8in ) subcutaneous laceration to dorsal right thumb. Distal rn neuro/vascular/tendon intact. Anesthesia: Wound infiltrated with 2 mls of 1% lidocaine. Wound prep: Extensive cleansing by me, Wound irrigation by me, Wound explored moderately, Copious irrigation. Skin closed with 5 5-0 Prolene using interrupted sutures and sterile technique. Dressed with Kerlix. Patient tolerated well. MDM: 23:12 Patient medically screened. rn 23:39 Differential diagnosis: superficial laceration. rn 23:40 Data reviewed: vital signs, nurses notes, and as a result, I will discharge patient. rn Counseling: I had a detailed discussion with the patient and/or guardian regarding: the historical points, exam findings, and any diagnostic results supporting the discharge/admit diagnosis, the need for outpatient follow up, to return to the emergency department if symptoms worsen or persist or if there are any questions or concerns that arise at home. Response to treatment: the patient's symptoms have markedly improved after treatment, and as a result, I will discharge patient. Special discussion: I discussed with the patient/guardian in detail that at this point there is no indication for admission to the hospital. It is understood, however, that if the symptoms persist or worsen the patient needs to return immediately for re-evaluation. ED course: No further bleeding noted after sutures, dressing applied, tetanus and abx given. Will dc home. 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 Will return in 2 weeks for suture removal.. 11/18 23:35 Order name: Suture Tray at Bedside; Complete Time: 23:42 rn 11/18 23:35 Order name: Sutures, Prolene; Complete Time: 23:42 rn Administered Medications: 23:30 Drug: Lidocaine (1 %) 1 vials Volume: 5 ml; Route: Infiltration; 23:44 Follow up: Response: No adverse reaction; Marked relief of symptoms 23:30 Drug: Tetanus-Diphtheria Toxoid Adult 0.5 ml {Software Computer Specialist: Yippy. Exp: 09/04/2021. Lot #: [id number]. } Route: IM; Site: left deltoid; 23:44 Follow up: Response: No adverse reaction 23:44 Drug: Augmentin 875 mg Route: PO; 23:44 Follow up: Response: No adverse reaction; Medication administered at discharge. Disposition: 11/18/19 23:42 Discharged to Home. Impression: Superficial laceration of right dorsal thumb. - Condition is Stable. - Discharge Instructions: Laceration Care, Adult, Sutured Wound Care. - Prescriptions for Augmentin 875- 125 mg Oral Tablet - take 1 tablet by ORAL route every 12 hours for 10 days; 20 tablet. - Work release form, Medication Reconciliation Form, Thank You Letter, Antibiotic Education, Prescription Opioid Use form. - Follow up: Emergency Department; When: 14 days; Reason: Staple/Suture removal. - Problem is new. - Symptoms have improved. Signatures: Blanquita Singleton RN RN Ilene Myles RN RN aa1 Renny Robertosn MD MD tax services intern: (The following items were deleted from the chart) 23:58 23:42 11/18/2019 23:42 Discharged to Home. Impression: Superficial laceration of right ch dorsal thumb. Condition is Stable. Forms are Medication Reconciliation Form, Thank You Letter, Antibiotic Education, Prescription Opioid Use. Follow up: Emergency Department; When: 14 days; Reason: Staple/Suture removal. Problem is new. Symptoms have improved. rn
[2019-11-18] MEDS ORDERED: AMOX/K CLAV 875 MG TAB ONE (23:53)
[2019-11-20 04:15] VITALS: TEMP 97.3
[2019-11-20 04:17] VITALS: BP 165/93; O2SAT 96
== END 2019-11-18 23:58 | disposition home or self-care (01) ==
LOC: ER 23:03
PROC: 0JQJ0ZZ Repair Right Hand Subcutaneous Tissue and Fascia, Open Approach (ICD-10-PCS; principal; 2019-11-18)
DX: S61.011A Laceration without foreign body of right thumb without damage to nail, initial encounter (principal); W45.8XXA Other foreign body or object entering through skin, initial encounter; Y93.89 Activity, other specified; Y92.89 Other specified places as the place of occurrence of the external cause; Y99.8 Other external cause status; I10 Essential (primary) hypertension; F17.210 Nicotine dependence, cigarettes, uncomplicated; Z23 Encounter for immunization
CPT/HCPCS: 90471; 90714; 99284

== ENCOUNTER 2019-11-24 13:28 | Emergency (ER) | payer OTHER, SELFPAY ==
--- OUTSIDE RECORDS SUMMARY | 2019-11-24 13:31 | XMS REPORT ---
:1965 Demographics Address [address] [place] [address] Email Address Preferred Language Unknown Marital Status Unknown Congregation Affiliation Unknown Race Unknown Additional Race(s) Unavailable Ethnic Group Unknown [facility] Address [address] [place] [address] [place] [id number] Care Team Providers Name Role Phone MILAGROSSENAIT METZRenetta Unavailable Unavailable Problems This patient has no known problems. Allergies, Adverse Reactions, Alerts This patient has no known allergies or adverse reactions. Medications This patient has no known medications. Results Test Description Test Time Test Comments Text Results Atomic Results Result Comments TISSUE EXAM 2018-04-04 09:09:00 Surgical Pathology Report Case: [id number] Authorizing Provider: Jesus Alberto Christian, Collected: 03/31/2018 0950 Ordering Location: [address] Received: 03/31/2018 1533 Service Pathologist: Oscar [...] IS NEGATIVE. Signing Pathologist Direct Phone Line: [phone] signed by Oscar Rosario MD on 04/04/2018 at 9:09 AMPreliminary result electronically signed by Oscar Rosario MD on 04/03/2018 at 10:25 [id number], [id number], [id number] bleed, rule out H. Pylori A. Gastric [...] developed and its performance characteristics determined by [facility], Pathology Laboratory. It has not been cleared [...] Value Reference Range Comments [facility]IPHERAL [facility] RE[facility] (test Cell counts confirmed. ywcf=[id number]) [id number] ([facility]) (test Madelyn Franco M.D. (electronic uatd=3666) signature) POCT-GLUCOSE [id number] 12:34:00 Test Item Value Reference Range Comments POC-GLUCOSE METER ([employer]) 194 mg/dL 70-110 TESTED AT [facility] [address] [facility] (test dwzg=0373) [facility] [address] POCT-GLUCOSE [id number] 10:43:00 Test Item Value Reference Range Comments POC-GLUCOSE METER ([employer]) 205 mg/dL 70-110 TESTED AT [facility] [address] [facility] (test vqjw=1139) [facility] [address] HEMOGLOBIN [id number] 08:47:00 Test Item Value Reference Range Comments HEMOGLOBIN A1C ([employer]) (test benr=828) 8.4 % 4.3-6.1 [id number] 08:25:00 Test Item Value Reference Range Comments HAPTOGLOBIN ([employer]) (test fzmg=871) 165 mg/dL 14-258 POCT-GLUCOSE [id number] 08:10:00 Test Item Value Reference Range Comments POC-GLUCOSE METER (BEAKER) 174 mg/dL 70-110 TESTED AT [facility] [address] [facility] (test wwlr=4358) [facility] [address] CBC W/PLT COUNT & AUTO [id number] 07:36:00 Test Item Value Reference Range Comments WHITE BLOOD CELL COUNT (BEAKER) (test sszh=088) 4.9 K/ L 3.5-10.5 RED BLOOD CELL COUNT (BEAKER) (test lqzp=687) 3.58 M/ L 4.63-6.08 HEMOGLOBIN (BEAKER) (test hmig=456) 8.4 GM/DL 13.7-17.5 HEMATOCRIT (BEAKER) (test xujr=026) 27.2 % 40.1-51.0 MEAN CORPUSCULAR VOLUME (BEAKER) (test pynm=129) 76.0 fL 79.0-92.2 MEAN CORPUSCULAR HEMOGLOBIN (BEAKER) (test 23.5 pg 25.7-32.2 tgog=178) MEAN CORPUSCULAR HEMOGLOBIN CONC (BEAKER) (test 30.9 GM/DL 32.3-36.5 muqq=056) RED CELL DISTRIBUTION WIDTH (BEAKER) (test 19.4 % 11.6-14.4 jifw=428) PLATELET COUNT (BEAKER) (test mtfr=558) 241 K/CU MM 150-450 MEAN PLATELET VOLUME (BEAKER) (test ufoj=019) 10.3 fL 9.4-12.4 NUCLEATED RED BLOOD CELLS (BEAKER) (test 0 /100 WBC 0-0 uwor=378) NEUTROPHILS RELATIVE PERCENT (BEAKER) (test 62 % mdse=492) LYMPHOCYTES RELATIVE PERCENT (BEAKER) (test 21 % kqfv=015) MONOCYTES RELATIVE PERCENT (BEAKER) (test 11 % snxt=388) EOSINOPHILS RELATIVE PERCENT (BEAKER) (test 5 % zliv=115) BASOPHILS RELATIVE PERCENT (BEAKER) (test 1 % dwdf=575) NEUTROPHILS ABSOLUTE COUNT (BEAKER) (test 3.07 K/ L 1.78-5.38 ohip=452) LYMPHOCYTES ABSOLUTE COUNT (BEAKER) (test 1.05 K/ L 1.32-3.57 hboz=382) MONOCYTES ABSOLUTE COUNT (BEAKER) (test 0.52 K/ L 0.30-0.82 nfrq=791) EOSINOPHILS ABSOLUTE COUNT (BEAKER) (test 0.25 K/ L 0.04-0.54 ncas=256) BASOPHILS ABSOLUTE COUNT (BEAKER) (test 0.03 K/ L 0.01-0.08 ytbk=949) IMMATURE GRANULOCYTES-RELATIVE PERCENT (BEAKER) 0 % 0-1 (test wbhq=4556) IRON, TIBC, % SAT. (WITHOUT FERRITIN)2018-03-31 07:20:00 Test Item Value Reference Range Comments IRON (BEAKER) (test upne=879) 17 ug/dL 40-160 TOTAL IRON BINDING CAPACITY (BEAKER) (test 395 ug/dL 250-450 trrp=796) IRON % SATURATION (2) (BEAKER) (test zqtg=8933) 4 % 20-55 [id number] 07:16:00 Test Item Value Reference Range Comments FERRITIN (BEAKER) (test likn=534) 11 ng/mL 5-275 LACTATE DEHYDROGENASE (LDH)2018-03-31 07:05:00 Test Item Value Reference Range Comments LACTATE DEHYDROGENASE (BEAKER) (test cppi=261) 166 U/L 125-220 HEMOGLOBIN AND [id number] 06:38:00 Test Item Value Reference Range Comments HEMOGLOBIN (BEAKER) (test omin=707) 8.3 GM/DL 13.7-17.5 HEMATOCRIT (BEAKER) (test arai=554) 26.8 % 40.1-51.0 POCT-GLUCOSE [id number] 06:15:00 Test Item Value Reference Range Comments POC-GLUCOSE METER (BEAKER) 183 mg/dL 70-110 TESTED AT [address] (test pufn=0054) [facility] [address] POCT-GLUCOSE [id number] 21:58:00 Test Item Value Reference Range Comments POC-GLUCOSE METER (BEAKER) 254 mg/dL 70-110 TESTED AT [address] (test cduy=0083) [facility] [address] PROTHROMBIN [id number] 20:06:00 Test Item Value Reference Range Comments PROTIME (BEAKER) (test vqyr=637) 14.3 seconds 11.7-14.7 INR (BEAKER) (test ohtr=941) 1.1 <=5.9 RECOMMENDED COUMADIN/WARFARIN INR THERAPY RANGESSTANDARD DOSE: 2.0 - 3.0 Includes: PROPHYLAXIS forvenous thrombosis, systemic embolization; TREATMENT for venous thrombosis and/or pulmonary embolus.HIGH RISK: Target INR is 2.5-3.5 for patients with mechanical heart valves.HEPATIC FUNCTION [id number] 19:25 :00 Test Item Value Reference Range Comments TOTAL PROTEIN (BEAKER) (test nulh=152) 5.9 gm/dL 6.0-8.3 ALBUMIN (BEAKER) (test evst=8943) 3.5 g/dL 3.5-5.0 BILIRUBIN TOTAL (BEAKER) (test gida=178) 0.5 mg/dL 0.2-1.2 BILIRUBIN DIRECT (BEAKER) (test fxob=553) 0.2 mg/dL 0.1-0.5 ALKALINE PHOSPHATASE (BEAKER) (test bhqg=213) 80 U/L 40-150 AST (SGOT) (BEAKER) (test lhzp=998) 12 U/L 5-34 ALT (SGPT) (BEAKER) (test aizk=083) 6 U/L 6-55 BASIC METABOLIC [id number] 19:25:00 Test Item Value Reference Range Comments SODIUM (BEAKER) (test 137 meq/L 136-145 nbja=305) POTASSIUM (BEAKER) (test 4.1 meq/L 3.5-5.1 scsd=121) CHLORIDE (BEAKER) (test 108 meq/L 98-107 cwgy=395) CO2 (BEAKER) (test 23 meq/L 22-29 ynmk=319) BLOOD UREA NITROGEN 14 mg/dL 7-21 (BEAKER) (test prvg=139) CREATININE (BEAKER) (test 0.72 mg/dL 0.57-1.25 uikn=301) GLUCOSE RANDOM (BEAKER) 163 mg/dL 70-105 (test vyxg=401) CALCIUM (BEAKER) (test 8.2 mg/dL 8.4-10.2 bxvo=192) EGFR (BEAKER) (test 114 mL/min/1.73 sq m ESTIMATED GFR IS NOT hfvx=3150) ACCURATE CREATININE CLEARANCE IN PREDICTING GLOMERULAR FILTRATION RATE. ESTIMATED GFR IS NOT APPLICABLE FOR DIALYSIS PATIENTS. CBC W/PLT COUNT & AUTO [id number] 19:16:00 Test Item Value Reference Range Comments WHITE BLOOD CELL COUNT (BEAKER) (test jfav=840) 5.2 K/ L 3.5-10.5 RED BLOOD CELL COUNT (BEAKER) (test yfdj=416) 3.02 M/ L 4.63-6.08 HEMOGLOBIN (BEAKER) (test zsii=879) 6.6 GM/DL 13.7-17.5 HEMATOCRIT (BEAKER) (test dacx=043) 22.6 % 40.1-51.0 MEAN CORPUSCULAR VOLUME (BEAKER) (test fleu=831) 74.8 fL 79.0-92.2 MEAN CORPUSCULAR HEMOGLOBIN (BEAKER) (test 21.9 pg 25.7-32.2 lsdm=623) MEAN CORPUSCULAR HEMOGLOBIN CONC (BEAKER) (test 29.2 GM/DL 32.3-36.5 nyhy=945) RED CELL DISTRIBUTION WIDTH (BEAKER) (test 19.7 % 11.6-14.4 dogv=730) PLATELET COUNT (BEAKER) (test qbnw=122) 234 K/CU MM 150-450 MEAN PLATELET VOLUME (BEAKER) (test wcfm=272) 10.3 fL 9.4-12.4 NUCLEATED RED BLOOD CELLS (BEAKER) (test 0 /100 WBC 0-0 kdwd=858) NEUTROPHILS RELATIVE PERCENT (BEAKER) (test 63 % ixue=318) LYMPHOCYTES RELATIVE PERCENT (BEAKER) (test 23 % wdcs=394) MONOCYTES RELATIVE PERCENT (BEAKER) (test 10 % zhyt=458) EOSINOPHILS RELATIVE PERCENT (BEAKER) (test 4 % flks=455) BASOPHILS RELATIVE PERCENT (BEAKER) (test 0 % rqvy=619) NEUTROPHILS ABSOLUTE COUNT (BEAKER) (test 3.29 K/ L 1.78-5.38 fzfz=121) LYMPHOCYTES ABSOLUTE COUNT (BEAKER) (test 1.18 K/ L 1.32-3.57 oido=304) MONOCYTES ABSOLUTE COUNT (BEAKER) (test 0.52 K/ L 0.30-0.82 nfhb=230) EOSINOPHILS ABSOLUTE COUNT (BEAKER) (test 0.21 K/ L 0.04-0.54 vnxe=993) BASOPHILS ABSOLUTE COUNT (BEAKER) (test 0.02 K/ L 0.01-0.08 dlez=352) IMMATURE GRANULOCYTES-RELATIVE PERCENT (BEAKER) 0 % 0-1 (test wctj=4029)
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
[2019-11-24 15:07] VITALS: BP 141/107; TEMP 98.3; O2SAT 99
== END 2019-11-24 14:43 | disposition home or self-care (01) ==
LOC: ER 13:28
DX: S33.5XXA Sprain of ligaments of lumbar spine, initial encounter (principal); V49.49XA Driver injured in collision with other motor vehicles in traffic accident, initial encounter; I10 Essential (primary) hypertension; F17.210 Nicotine dependence, cigarettes, uncomplicated
CPT/HCPCS: 99283

== ENCOUNTER 2019-11-26 05:42 | Emergency (ER) | payer SELFPAY ==
--- OUTSIDE RECORDS SUMMARY | 2019-11-26 05:45 | XMS REPORT ---
:1965 Demographics Address [address] [place] [address] Email Address [email or web address] Preferred Language Unknown Marital Status Unknown Sikhism Affiliation Unknown Race Unknown Additional Race(s) Unavailable Ethnic Group Unknown Author [facility] Address [address] [place] [address] [place] [id number] Care Team Providers Name Role Phone MILAGROSSENAIT METZRenetta Unavailable Unavailable Problems This patient has no known problems. Allergies, Adverse Reactions, Alerts This patient has no known allergies or adverse reactions. Medications This patient has no known medications. Results Test Description Test Time Test Comments Text Results Atomic Results Result Comments TISSUE EXAM 2018-04-04 09:09:00 Surgical Pathology Report Case: [id number] Authorizing Provider: Jesus Alberto Christian, Collected: 03/31/2018 0950 Ordering Location: [address] Received: 03/31/2018 1533 Service Pathologist: [...] IS NEGATIVE. Signing Pathologist Direct Phone Line: [phone] signed by Oscar Rosario MD on 04/04/2018 at 9:09 AMPreliminary result electronically signed by Oscar Rosario MD on 04/03/2018 at 10:25 [id number], [id number], [id number] bleed, rule out H. Pylori A. Gastric [...] developed and its performance characteristics determined by [facility], Pathology Laboratory. It has not been cleared [...] Value Reference Range Comments PERIPHERAL SMR REVIEW ([employer] [facility] (test Cell counts confirmed. uqin=8336) [id number] ([facility]) (test Madelyn Franco M.D. (electronic xgmj=9544) signature) POCT-GLUCOSE [id number] 12:34:00 Test Item Value Reference Range Comments POC-GLUCOSE METER ([employer] 194 mg/dL 70-110 TESTED AT [facility] [address] [facility] (test wrvc=6663) [facility] [address] POCT-GLUCOSE [id number] 10:43:00 Test Item Value Reference Range Comments POC-GLUCOSE METER ([employer] 205 mg/dL 70-110 TESTED AT [facility] [address] [facility] (test gdcm=1733) [facility] [address] HEMOGLOBIN [id number] 08:47:00 Test Item Value Reference Range Comments HEMOGLOBIN A1C ([employer]) (test nlbm=927) 8.4 % 4.3-6.1 [id number] 08:25:00 Test Item Value Reference Range Comments HAPTOGLOBIN ([employer]) (test ooaw=064) 165 mg/dL 14-258 POCT-GLUCOSE [id number] 08:10:00 Test Item Value Reference Range Comments POC-GLUCOSE METER (BEAKER) 174 mg/dL 70-110 [facility]ED AT [facility] [address] [facility] (test hpef=1066) [facility] [address] CBC W/PLT COUNT & AUTO [id number] 07:36:00 Test Item Value Reference Range Comments WHITE BLOOD CELL COUNT (BEAKER) (test syyr=751) 4.9 K/ L 3.5-10.5 RED BLOOD CELL COUNT (BEAKER) (test vkcu=247) 3.58 M/ L 4.63-6.08 HEMOGLOBIN (BEAKER) (test hulr=427) 8.4 GM/DL 13.7-17.5 HEMATOCRIT (BEAKER) (test cqet=293) 27.2 % 40.1-51.0 MEAN CORPUSCULAR VOLUME (BEAKER) (test igsl=676) 76.0 fL 79.0-92.2 MEAN CORPUSCULAR HEMOGLOBIN (BEAKER) (test 23.5 pg 25.7-32.2 qbbi=597) MEAN CORPUSCULAR HEMOGLOBIN CONC (BEAKER) (test 30.9 GM/DL 32.3-36.5 loal=500) RED CELL DISTRIBUTION WIDTH (BEAKER) (test 19.4 % 11.6-14.4 bazt=184) PLATELET COUNT (BEAKER) (test qtbo=187) 241 K/CU MM 150-450 MEAN PLATELET VOLUME (BEAKER) (test jdoz=479) 10.3 fL 9.4-12.4 NUCLEATED RED BLOOD CELLS (BEAKER) (test 0 /100 WBC 0-0 turp=650) NEUTROPHILS RELATIVE PERCENT (BEAKER) (test 62 % miyi=019) LYMPHOCYTES RELATIVE PERCENT (BEAKER) (test 21 % ukby=449) MONOCYTES RELATIVE PERCENT (BEAKER) (test 11 % ijrj=305) EOSINOPHILS RELATIVE PERCENT (BEAKER) (test 5 % uvqt=742) BASOPHILS RELATIVE PERCENT (BEAKER) (test 1 % eraj=897) NEUTROPHILS ABSOLUTE COUNT (BEAKER) (test 3.07 K/ L 1.78-5.38 uosm=146) LYMPHOCYTES ABSOLUTE COUNT (BEAKER) (test 1.05 K/ L 1.32-3.57 zoog=386) MONOCYTES ABSOLUTE COUNT (BEAKER) (test 0.52 K/ L 0.30-0.82 vglv=189) EOSINOPHILS ABSOLUTE COUNT (BEAKER) (test 0.25 K/ L 0.04-0.54 zjns=418) BASOPHILS ABSOLUTE COUNT (BEAKER) (test 0.03 K/ L 0.01-0.08 nlcr=389) IMMATURE GRANULOCYTES-RELATIVE PERCENT (BEAKER) 0 % 0-1 (test zdgn=7353) IRON, TIBC, % SAT. (WITHOUT FERRITIN)2018-03-31 07:20:00 Test Item Value Reference Range Comments IRON (BEAKER) (test yjec=778) 17 ug/dL 40-160 TOTAL IRON BINDING CAPACITY (BEAKER) (test 395 ug/dL 250-450 wmfj=754) IRON % SATURATION (2) (BEAKER) (test vkre=4242) 4 % 20-55 [id number] 07:16:00 Test Item Value Reference Range Comments FERRITIN (BEAKER) (test ddrf=336) 11 ng/mL 5-275 LACTATE DEHYDROGENASE (LDH)2018-03-31 07:05:00 Test Item Value Reference Range Comments LACTATE DEHYDROGENASE (BEAKER) (test cznr=131) 166 U/L 125-220 HEMOGLOBIN AND [id number] 06:38:00 Test Item Value Reference Range Comments HEMOGLOBIN (BEAKER) (test xnay=103) 8.3 GM/DL 13.7-17.5 HEMATOCRIT (BEAKER) (test ihph=582) 26.8 % 40.1-51.0 POCT-GLUCOSE [id number] 06:15:00 Test Item Value Reference Range Comments POC-GLUCOSE METER (BEAKER) 183 mg/dL 70-110 TESTED AT [address] (test xusi=1051) [facility] [address] POCT-GLUCOSE [id number] 21:58:00 Test Item Value Reference Range Comments POC-GLUCOSE METER (BEAKER) 254 mg/dL 70-110 TESTED AT [address] (test lfpl=1083) [facility] [address] PROTHROMBIN [id number] 20:06:00 Test Item Value Reference Range Comments PROTIME (BEAKER) (test ahwb=612) 14.3 seconds 11.7-14.7 INR (BEAKER) (test jpbw=565) 1.1 <=5.9 RECOMMENDED COUMADIN/WARFARIN INR THERAPY RANGESSTANDARD DOSE: 2.0 - 3.0 Includes: PROPHYLAXIS forvenous thrombosis, systemic embolization; TREATMENT for venous thrombosis and/or pulmonary embolus.HIGH RISK: Target INR is 2.5-3.5 for patients with mechanical heart valves.HEPATIC FUNCTION [id number] 19:25 :00 Test Item Value Reference Range Comments TOTAL PROTEIN (BEAKER) (test isgb=073) 5.9 gm/dL 6.0-8.3 ALBUMIN (BEAKER) (test yxcc=8807) 3.5 g/dL 3.5-5.0 BILIRUBIN TOTAL (BEAKER) (test ecpi=707) 0.5 mg/dL 0.2-1.2 BILIRUBIN DIRECT (BEAKER) (test evdk=899) 0.2 mg/dL 0.1-0.5 ALKALINE PHOSPHATASE (BEAKER) (test ulhu=243) 80 U/L 40-150 AST (SGOT) (BEAKER) (test guqv=239) 12 U/L 5-34 ALT (SGPT) (BEAKER) (test spqr=891) 6 U/L 6-55 BASIC METABOLIC [id number] 19:25:00 Test Item Value Reference Range Comments SODIUM (BEAKER) (test 137 meq/L 136-145 qvmq=598) POTASSIUM (BEAKER) (test 4.1 meq/L 3.5-5.1 ubma=578) CHLORIDE (BEAKER) (test 108 meq/L 98-107 ptcw=272) CO2 (BEAKER) (test 23 meq/L 22-29 lxiw=018) BLOOD UREA NITROGEN 14 mg/dL 7-21 (BEAKER) (test tzhl=680) CREATININE (BEAKER) (test 0.72 mg/dL 0.57-1.25 qkis=874) GLUCOSE RANDOM (BEAKER) 163 mg/dL 70-105 (test mlro=858) CALCIUM (BEAKER) (test 8.2 mg/dL 8.4-10.2 uqtn=733) EGFR (BEAKER) (test 114 mL/min/1.73 sq m ESTIMATED GFR IS NOT vwsn=1675) ACCURATE CREATININE CLEARANCE IN PREDICTING GLOMERULAR FILTRATION RATE. ESTIMATED GFR IS NOT APPLICABLE FOR DIALYSIS PATIENTS. CBC W/PLT COUNT & AUTO [id number] 19:16:00 Test Item Value Reference Range Comments WHITE BLOOD CELL COUNT (BEAKER) (test orrf=205) 5.2 K/ L 3.5-10.5 RED BLOOD CELL COUNT (BEAKER) (test sjqf=824) 3.02 M/ L 4.63-6.08 HEMOGLOBIN (BEAKER) (test egyq=401) 6.6 GM/DL 13.7-17.5 HEMATOCRIT (BEAKER) (test tsdy=755) 22.6 % 40.1-51.0 MEAN CORPUSCULAR VOLUME (BEAKER) (test nbne=304) 74.8 fL 79.0-92.2 MEAN CORPUSCULAR HEMOGLOBIN (BEAKER) (test 21.9 pg 25.7-32.2 dhzm=660) MEAN CORPUSCULAR HEMOGLOBIN CONC (BEAKER) (test 29.2 GM/DL 32.3-36.5 qcga=040) RED CELL DISTRIBUTION WIDTH (BEAKER) (test 19.7 % 11.6-14.4 hvih=533) PLATELET COUNT (BEAKER) (test ibey=146) 234 K/CU MM 150-450 MEAN PLATELET VOLUME (BEAKER) (test girn=592) 10.3 fL 9.4-12.4 NUCLEATED RED BLOOD CELLS (BEAKER) (test 0 /100 WBC 0-0 axzq=843) NEUTROPHILS RELATIVE PERCENT (BEAKER) (test 63 % smmr=814) LYMPHOCYTES RELATIVE PERCENT (BEAKER) (test 23 % aohu=313) MONOCYTES RELATIVE PERCENT (BEAKER) (test 10 % kozx=768) EOSINOPHILS RELATIVE PERCENT (BEAKER) (test 4 % kcer=318) BASOPHILS RELATIVE PERCENT (BEAKER) (test 0 % owfa=499) NEUTROPHILS ABSOLUTE COUNT (BEAKER) (test 3.29 K/ L 1.78-5.38 acek=933) LYMPHOCYTES ABSOLUTE COUNT (BEAKER) (test 1.18 K/ L 1.32-3.57 ftug=296) MONOCYTES ABSOLUTE COUNT (BEAKER) (test 0.52 K/ L 0.30-0.82 cmsr=714) EOSINOPHILS ABSOLUTE COUNT (BEAKER) (test 0.21 K/ L 0.04-0.54 pldl=272) BASOPHILS ABSOLUTE COUNT (BEAKER) (test 0.02 K/ L 0.01-0.08 rfzp=616) IMMATURE GRANULOCYTES-RELATIVE PERCENT (BEAKER) 0 % 0-1 (test jqiv=6219)
--- NOTE | 2019-11-26 06:08 | EDPHYS ---
Physician Documentation [facility] Name: Maryam Whitfield Age: 54 yrs Sex: Male : 1965 Arrival Date: 11/26/2019 Time: 05:44 Bed 15 Private MD: ED Physician Yaya Hogan HPI: 11/26 06:08 This 54 yrs old Male presents to ER via Ambulatory with complaints of Suture kb Removal. 06:08 The patient has sutures on the dorsal aspect of distal phalanx of right thumb. Previous kb treatment: The patient was initially treated on November 18, 2019, the care was rendered at [facility]. Sutures/tom progress: The patient has no c/o's. The wound is well-healing with no redness, swelling, discharge, or dehiscence reported. The patient has not experienced similar symptoms in the past. The patient has been recently seen at the [facility] Emergency Department. Historical: - Allergies: 06:00 NKA; - Home Meds: 06:00 glipizide 5 mg Oral tab 1 tab 2 times per day [Active]; lisinopril 20 mg Oral tab twice wh a day [Active]; metformin 1,000 mg Oral TG24 1 tab once daily [Active]; pravastatin 5 MG Oral twice a day [Active]; - PMHx: 06:00 Diabetes - IDDM; Diabetes - NIDDM; Hyperlipidemia; Hypertension; - PSHx: 06:00 None; - Immunization history:: Adult Immunizations not up to date. - Coronavirus screen:: The patient has NOT traveled to [place] in the past 14 days. - Social history:: Smoking status: Patient reports the use of cigarette tobacco products, denies chronic smoking, but will smoke occasionally. - Ebola Screening: : Patient negative for fever greater than or equal to 101.5 degrees Fahrenheit, and additional compatible Ebola Virus Disease symptoms Patient denies exposure to infectious person. ROS: 06:08 Constitutional: Negative for fever, chills, and weight loss, Cardiovascular: Negative kb for chest pain, palpitations, and edema, Respiratory: Negative for shortness of breath, cough, wheezing, and pleuritic chest pain, Abdomen/GI: Negative for abdominal pain, nausea, vomiting, diarrhea, and constipation, Back: Negative for injury and pain, MS/Extremity: Negative for injury and deformity, Neuro: Negative for headache, weakness, numbness, tingling, and seizure. 06:08 Skin: Positive for sutures in place right thumb. Exam: 06:08 Constitutional: This is a well developed, well nourished patient who is awake, alert, kb and in no acute distress. Head/Face: Normocephalic, atraumatic. Chest/axilla: Normal chest wall appearance and motion. Nontender with no deformity. No lesions are appreciated. Cardiovascular: Regular rate and rhythm with a normal S1 and S2. No gallops, murmurs, or rubs. Normal PMI, no JVD. No pulse deficits. Respiratory: Lungs have equal breath sounds bilaterally, clear to auscultation and percussion. No rales, rhonchi or wheezes noted. No increased work of breathing, no retractions or nasal flaring. Abdomen/GI: Soft, non-tender, with normal bowel sounds. No distension or tympany. No guarding or rebound. No evidence of tenderness throughout. MS/ Extremity: Pulses equal, no cyanosis. Neurovascular intact. Full, normal range of motion. Neuro: Awake and alert, GCS 15, oriented to person, place, time, and situation. Cranial nerves II-XII grossly intact. Motor strength 5/5 in all extremities. Sensory grossly intact. Cerebellar exam normal. Normal gait. 06:08 Skin: Wound recheck: Suture laceration closure: the wound is healing well, the edges are well approximated, no evidence of dehiscence, no drainage, no erythema, no swelling. Vital Signs: 05:55 BP 165 / 99 LA Sitting (auto/reg); Pulse 82 MON; Resp 16 S; Temp 97.6(O); Pulse Ox 99% ds4 on R/A; Procedures: 06:06 Suture/Staple removal: Removed 5 sutures, from dorsal aspect of distal phalanx of right kb thumb, site appears well healed, dressed with steristrips. Patient tolerated well. MDM: 05:58 Patient medically screened. 06:07 Data reviewed: vital signs, nurses notes. Data interpreted: Pulse oximetry: on room air kb is 99 %. Interpretation: normal. Counseling: I had a detailed discussion with the patient and/or guardian regarding: the historical points, exam findings, and any diagnostic results supporting the discharge/admit diagnosis, the need for outpatient follow up, a family practitioner, to return to the emergency department if symptoms worsen or persist or if there are any questions or concerns that arise at home. 06:09 ED course: steristrips put in place due to unsutured area around nail still needing kb reinforcement. Pt educated to leave steri-strips in place for at least 3 days. Unused steri-strips given to pt to replace if needed. Administered Medications: No medications were administered Disposition: 08:15 Co-signature as Attending Physician, Yaya Hogan MD I agree with the assessment and tw4 plan of care. Disposition: 11/26/19 06:08 Discharged to Home. Impression: Encounter for removal of sutures. - Condition is Stable. - Discharge Instructions: Suture Removal, Care After. - Medication Reconciliation Form, Thank You Letter, Antibiotic Education, Prescription Opioid Use, Work release form form. - Follow up: Emergency Department; When: As needed; Reason: Worsening of condition. Follow up: Private Physician; When: 2 - 3 days; Reason: Recheck today's complaints, Continuance of care, Re-evaluation by your physician. Signatures: Darshana Harrison, CHUNG-Brynn WILKES-Sinecre Carrillo Terrence, MD MD tw4 Corrections: (The following items were deleted from the chart) 06:07 06:06 Suture/Staple removal: Removed 5 sutures, site appears well healed, dressed with kb steristrips. Patient tolerated well, kb 06:26 06:08 11/26/2019 06:08 Discharged to Home. Impression: Encounter for removal of wh sutures. Condition is Stable. Forms are Medication Reconciliation Form, Thank You Letter, Antibiotic Education, Prescription Opioid Use. Follow up: Emergency Department; When: As needed; Reason: Worsening of condition. Follow up: Private Physician; When: 2 - 3 days; Reason: Recheck today's complaints, Continuance of care, Re-evaluation by your physician. kb
--- NOTE | 2019-11-26 06:08 | ER ---
Nurse's Notes [facility] Name: Maryam Whitfield Age: 54 yrs Sex: Male : 1965 Arrival Date: 11/26/2019 Time: 05:44 Bed 15 Private MD: Diagnosis: Encounter for removal of sutures Presentation: 11/26 05:55 Presenting complaint: Patient states: He was seen here last Saturday night for wh laceration on right thumb with suture repair and was instructed to come back after a week for suture removal. Transition of care: patient was not received from another setting of care. Onset of symptoms was November 26, 2019. Risk Assessment: Do you want to hurt yourself or someone else? Patient reports no desire to harm self or others. Initial Sepsis Screen: Does the patient meet any 2 criteria? No. Patient's initial sepsis screen is negative. Does the patient have a suspected source of infection? No. Patient's initial sepsis screen is negative. Care prior to arrival: None. 05:55 Method Of Arrival: Ambulatory 05:55 Acuity: YA 4 Triage Assessment: 06:04 General: Behavior is calm, cooperative, appropriate for age. Historical: - Allergies: 06:00 NKA; - Home Meds: 06:00 glipizide 5 mg Oral tab 1 tab 2 times per day [Active]; lisinopril 20 mg Oral tab twice wh a day [Active]; metformin 1,000 mg Oral TG24 1 tab once daily [Active]; pravastatin 5 MG Oral twice a day [Active]; - PMHx: 06:00 Diabetes - IDDM; Diabetes - NIDDM; Hyperlipidemia; Hypertension; - PSHx: 06:00 None; - Immunization history:: Adult Immunizations not up to date. - Coronavirus screen:: The patient has NOT traveled to [place] in the past 14 days. - Social history:: Smoking status: Patient reports the use of cigarette tobacco products, denies chronic smoking, but will smoke occasionally. - Ebola Screening: : Patient negative for fever greater than or equal to 101.5 degrees Fahrenheit, and additional compatible Ebola Virus Disease symptoms Patient denies exposure to infectious person. Screenin:00 Abuse screen: Denies threats or abuse. Denies injuries from another. Nutritional screening: No deficits noted. Tuberculosis screening: No symptoms or risk factors identified. Fall Risk None identified. Assessment: 06:01 General: Appears in no apparent distress. Pain: Denies pain. Neuro: Level of wh Consciousness is awake, alert, obeys commands, Oriented to person, place, time, situation, Appropriate for age. Cardiovascular: Capillary refill < 3 seconds. Respiratory: Airway is patent Respiratory effort is even, unlabored, Respiratory pattern is regular, symmetrical. GI: Abdomen is flat, non-distended. : No signs and/or symptoms were reported regarding the genitourinary system. EENT: No signs and/or symptoms were reported regarding the EENT system. Derm: sutures on Right thumb. Musculoskeletal: Circulation, motion, and sensation intact. Vital Signs: 05:55 BP 165 / 99 LA Sitting (auto/reg); Pulse 82 MON; Resp 16 S; Temp 97.6(O); Pulse Ox 99% ds4 on R/A; ED Course: 05:44 Patient arrived in ED. cl3 05:47 Sincere Huddleston is Primary Nurse. 05:56 Triage completed. 05:58 Darshana Harrison FNP-C is [facility]. 05:58 Yaya Hogan MD is Attending Physician. 06:00 Arm band placed on left wrist. 06:01 No provider procedures requiring assistance completed. Patient did not have IV access during this emergency room visit. 06:05 Patient has correct armband on for positive identification. Bed in low position. Call light in reach. Side rails up X 1. Pulse ox on. NIBP on. 06:10 Removal of Removed sutures from dorsal aspect of distal phalanx of right thumb Suture site is well healed Patient tolerated well. Administered Medications: No medications were administered Outcome: 06:08 Discharge ordered by . kb 06:25 Discharged to home ambulatory. 06:25 Condition: stable 06:25 Discharge instructions given to patient, Instructed on discharge instructions, follow up and referral plans. wound care, Demonstrated understanding of instructions, follow-up care, wound care. 06:26 Patient left the ED. Signatures: Darshana Harrison FNP-C FNP-Noe Dugan ds4 Sincere Huddleston Lolly Baker cl3
[2019-11-26 06:32] VITALS: BP 165/99; TEMP 97.6; O2SAT 99
== END 2019-11-26 06:26 | disposition home or self-care (01) ==
LOC: ER 05:42
DX: Z48.02 Encounter for removal of sutures (principal)
CPT/HCPCS: 99283

== ENCOUNTER 2022-09-26 18:26 | Emergency (ER) | payer OTHER ==
--- OUTSIDE RECORDS SUMMARY | 2022-09-26 18:32 | XMS REPORT | Continuity of Care Document ---
:1965 Author Organization [facility] t Address [address] [place] [address] [place] [address] Support Name Relationship Address Phone Rox Whitfield Spouse [address] [place] [address] Care Team Providers Name Role Phone SENAIT PERALES Attending Clinician Unavailable SENAIT PERALES Admitting Clinician Unavailable Problems Condition Condition Condition Status Onset Resolution Last Treating Co mments Source Name Details Category Date Date Treatment Clinician Date Acute Acute Disease Active [facility] ulcer with ulcer with 00:00: Me dical hemorrhage hemorrhage 00 Ce nter Symptomati Symptomati Disease Active [facility] anemia c anemia [facility] 00:00: Medical 00 [place] Melena Melena Disease Active [facility] 00:[facility]: Medical 00 [place] Gastritis Gastritis Disease Active [facility] duodenitis duodenitis 00:00: Me dical 00 Center Allergies, Adverse Reactions, Alerts This patient has no known allergies or adverse reactions. Social History Social Habit Start Date Stop Date Quantity Comments Source History SDOH [facility] Alcohol Frequency Medical [facility] History SDOH [facility] Alcohol Std Drinks Medica l Center History SDOH [facility] Alcohol Binge Medical [address] [facility] Alcohol intake 2018-03-31 2018-03-31 [facility] Center (finding) History SDOH 2018-03-30 2018-03-30 4 beers [address] [facility] Alcohol Comment 00:00:00 00:00:00 past year Medical C enter Cigarettes smoked 2018-03-30 2018-03-[address] [facility] current (pack per 00:00:00 00:00:00 Medical Center day) - Reported Tobacco use and 2018-03-30 2018-03-[address] [facility] exposure 00:00:00 00:00:00 [facility] Center Sex Assigned At [address] [address] [facility] 00:00:00 00:00:00 Medical Center Smoking Status Start Date Stop Date Source Current every day smoker 2018-03-30 [facility] Medications Ordered Filled Start Stop Current Ordering Indication Dosage Frequency Signature Comments Components Source Medication Medication Date Date Medication? Clinician (SIG) Name Name metFORMIN Yes 1000mg Take 1,[address] (GLUCOPHAGE 6-25 mg by [facility] ) 1000 MG 14:51: mouth Medical tablet 45 daily with Center breakfast. pravastatin Yes 40mg QD Take [address] (PRAVACHOL) 6-25 by mouth Luke s 40 MG 14:51: nightly. Medical tablet 45 Center lisinopril Yes 20mg QD Take [address] (PRINIVIL,Z 6-25 by mouth Luke s ESTRIL) 20 14:51: daily. Medic al MG tablet 45 Center glipiZIDE Yes 5mg Take [address] [address] (GLUCOTROL) 6-25 by mouth 2 Caitlin kes 5 MG tablet 14:51: (two) Medic al 45 times Center daily before meals. Procedures This patient has no known procedures. Encounters Start End Encounter Admission Attending Care Care Encounter Source Date/Time Date/Time Type Type Clinicians Facility Department ID 2022-07-20 2022-07-20 Outpatient [facility] [id number] 022 Yayo 08:09:34 08:09:34 1014 F Erasto 2022-07-17 2022-07-17 Outpatient [facility] [id number] [id number] Yayo 17:07:38 17:07:38 1011 F Erasto 2022-07-11 2022-07-11 Outpatient [facility] [id number] 022 Yayo 14:53:43 14:53:43 1005 F Erasto Results Test Description Test Time Test Comments Results Result Comments Source HEMOGLOBIN A1c 2022-07-21 09:42:34 Test Item Value Reference Range Interpretation Comme nts HEMOGLOBIN A1c (test code = 9.9 % 4.2-5.6 H [employer] 25361) GUIDELINES FOR HGB A1C: PREDIABETES/INC REASED RISK . . . . . . . 5.7-6.4% DIAGNO SIS OF DIABETES . . . . . . . . . >=6.5% WITH CONFIRMATION OR APPROPRIATE SYM PTOMS NOTE: ASSAY MAY BE AFFECTED BY HEM OGLOBINOPATHIES (SICKLE CELL ANEMIA, S- C DISEASE, OTHERS) OR ARTIFICIALLY LO WERED BY DECREASED RED CELL SURVIVAL ( HEMOLYTIC ANEMIAS, BLOOD LOSS, ETC.). CO NSIDER ALTERNATE TESTING OR LABORATORY C ONSULTATION. COMPREHENSIVE METABOLIC [id number] 04:19:08 Test Item Value Reference Range Interpretation Comments GLUCOSE (test code = 300 MG/DL 70-99 H 2216) BUN (test code = 18 MG/DL 6-20 2207) CREATININE (test 0.64 MG/DL 0.80-1.40 L code = 2214) eGFR (2020 CKD-EPI) 110 >60 (test code = 33007) ML/MIN/1.73 CALC BUN/CREAT (test 28 RATIO 6-28 code = 2235) SODIUM (test code = 141 MEQ/L 341-039 3568) POTASSIUM (test code 4.3 MEQ/L 3.5-5.4 = 2227) CHLORIDE (test code 103 MEQ/L 95-107 = 221) CARBON DIOXIDE (test 24 MEQ/L 19-31 code = 2206) CALCIUM (test code = 9.2 MG/DL 8.5-10.5 2208) PROTEIN, TOTAL (test 7.0 G/DL 6.1-8.3 code = 2229) ALBUMIN (test code = 4.4 G/DL 3.5-5.2 2200) CALC GLOBULIN (test 2.6 G/DL 1.9-3.7 code = 2240) CALC A/G RATIO (test 1.7 RATIO 1.0-2.6 code = 2234) BILIRUBIN, TOTAL 0.3 MG/DL See_Comment [Automated message] (test code = 2207) The syste m which generated this result transmit gloria reference range : <=1.2. The refe rence range was not u sed to interpret th is result as normal/abnormal . ALKALINE PHOSPHATASE 107 U/L 40-123 (test code = 2204) AST (test code = 19 U/L 50 2217) ALT (test code = 11 U/L 50 2218) LIPID [id number] 04:19:08 Test Item Value Reference Range Interpretation Comments CHOLESTEROL (test 189 MG/DL <200 code = 2210) TRIGLYCERIDES (test 178 MG/DL <150 H code = 2232) HDL CHOLESTEROL (test 40 MG/DL >39 code = 2220) CALC LDL CHOL (test 119 MG/DL <100 H NOTE: C ALCULATED LDL code = 2237) IS BASED ON MAGALYS-WADE METHOD WHICHINCLUDES ADJUSTABLE TRIGLYCERIDE:VL DL CHOLESTEROL RAT IO.THIS FACTOR VARIES B Y MEASURED TRIGLY CERIDE AND NON-HDLCHOL ESTEROL CONCENTRATIONS WITH INCREASED CALCU LATED LDL SEENIN HIGH ER TRIGLYCERIDE OR LOWER NON-HDL SPECIME NS. FOR MOREINFORMATION , SEE CLIENT ANNOUNCE MENT AT [email or web address] RISK RATIO LDL/HDL 2.98 RATIO <3.55 UNLESS O THERWISE (test code = 2238) INDICATED , ALL TESTING PERFORMED [facility], [facility]. [address] [place] [id number] [place] [address] DIRECTOR: DENEEN VU M.D. CLIA NUMBER [id number] CAP ACCREDITATION N O. [id number] HEMOGLOBIN [id number] 06:51:10 Test Item Value Reference Range Interpretation Comments HEMOGLOBIN A1c (test 14.3 % 4.2-5.6 H [employer] AN DIABETES code = 26706) ASSOCIATION IDELINES FOR HGB A1C: PREDIABETES/INC REASED RISK . . . . . . . 5 .7-6.4% DIAGNOSIS OF DI ABETES . . . . . . . . . >=6 .5% WITH CONFIRMATION OR APPROPRIATE SYMPTOMS NOTE: ASSAY MAY BE AFFECTED BY HEMOGLOBINOPATH IES (SICKLE CELL ANEMIA, S- C DISEASE, OTHERS) OR AVEL FICIALLY LOWERED BY DECR EASED RED CELL SURVIVAL ( HEMOLYTIC ANEMIAS, BLOOD LOSS, ETC.). CONSIDER ALTERN ATE TESTING OR LABORATORY C ONSULTATION. LIPID [id number] 06:15:32 Test Item Value Reference Range Interpretation Comments CHOLESTEROL (test 197 MG/DL <200 code = 2210) TRIGLYCERIDES (test 137 MG/DL <150 code = 2232) HDL CHOLESTEROL (test 41 MG/DL >39 code = 2220) CALC LDL CHOL (test 131 MG/DL <100 H NOTE: C ALCULATED LDL code = 2237) IS BASED ON MAGALYS-WADE METHOD WHICHINCLUDES ADJUSTABLE TRIGLYCERIDE:VL DL CHOLESTEROL RAT IO.THIS FACTOR VARIES B Y MEASURED TRIGLY CERIDE AND NON-HDLCHOL ESTEROL CONCENTRATIONS WITH INCREASED CALCU LATED LDL SEENIN HIGH ER TRIGLYCERIDE OR LOWER NON-HDL SPECIME NS. FOR MOREINFORMATION , SEE CLIENT ANNOUNCE MENT AT [email or web address] [email or web address] RATIO LDL/HDL 3.20 RATIO <3.55 UNLESS O THERWISE (test code = 2238) INDICATED , ALL TESTING PERFORMED [facility], [facility]. [address] [place] [address] BALJINDER HINDS DIRECTOR: DENEEN VU M.D. CLIA NUMBER [id number] CAP ACCREDITATION N O. [id number] ALBUMIN/CREATININE RATIO, URINE, [id number] 04:48:57 Test Item Value Reference Range Interpretation Comments CREATININE, URINE, 69.3 MG/DL NOT ESTAB RANDOM (test code = 2072) ALBUMIN, URINE, 57.9 MG/DL NOT ESTAB RANDOM (test code = 72155) CALC ALBUMIN/CREAT, 835 MG/G <30 H Note: RND (test code = Albumin/Cre atinine 46702) ratio reference interval reflec ts ADA and NKF guideli jaiden. HIV 1/2 4TH GEN, RFLX [id number] 04:13:42 Test Item Value Reference Range Interpretation Comments HIV 1/2 4TH GEN, NON-REACTIVE NON-REACTIVE UNLESS OTH ERWISE RFLX CONF (test INDICATED, A LL TESTING code = 3514) PERFORMED [facility] [employer] [address] [place] [address] BALJINDER HINDS DIRECTOR: DENEEN VU M.D. CLIA NUMBER [id number] CAP ACCREDITATION N O. [id number] PSA, [id number] 01:15:29 Test Item Value Reference Range Interpretation Comments PSA, TOTAL 0.30 NG/ML See_Comment NOTE: Methodol ogy is Kalpana (test code = Brandon Electroch emiluminescence 2606) Immunoassay tra ceable to WHO reference stand renato 96/760. [Automated mess age] The system which generated this result transmitted ref erence range: <=4.00. The ref erence range was not used to int erpret this result as sonali l/abnormal. LIPID [id number] 00:16:46 Test Item Value Reference Range Interpretation Comments CHOLESTEROL (test 185 MG/DL <200 code = 2210) TRIGLYCERIDES (test 130 MG/DL <150 code = 2232) HDL CHOLESTEROL (test 41 MG/DL >39 code = 2220) CALC LDL CHOL (test 119 MG/DL <100 H NOTE: C ALCULATED LDL code = 2237) IS BASED ON MAGALYS-WADE METHOD WHICHINCLUDES ADJUSTABLE TRIGLYCERIDE:VL DL CHOLESTEROL RAT IO.THIS FACTOR VARIES B Y MEASURED TRIGLY CERIDE AND NON-HDLCHOL ESTEROL CONCENTRATIONS WITH INCREASED CALCU LATED LDL SEENIN HIGH ER TRIGLYCERIDE OR LOWER NON-HDL SPECIME NS. FOR MOREINFORMATION , SEE CLIENT ANNOUNCE MENT AT [email or web address] RISK RATIO LDL/HDL 2.90 RATIO <3.55 (test code = 2238) COMPREHENSIVE METABOLIC [id number] 00:16:46 Test Item Value Reference Range Interpretation Comments GLUCOSE (test code = 131 MG/DL 70-99 H 2216) BUN (test code = 18 MG/DL -2207) CREATININE (test 0.72 MG/DL 0.80-1.40 L code = 2214) eGFR (2020 CKD-EPI) 107 >60 (test code = 72975) ML/MIN/1.73 CALC BUN/CREAT (test 25 RATIO 04-03 code = 2235) SODIUM (test code = 140 MEQ/L 235-106 1239) POTASSIUM (test code 4.1 MEQ/L 3.5-5.4 = 222) CHLORIDE (test code 103 MEQ/L 95-107 = 221) CARBON DIOXIDE (test 22 MEQ/L 19-31 code = 220) CALCIUM (test code = 9.3 MG/DL 8.5-10.5 2208) PROTEIN, TOTAL (test 6.8 G/DL 6.1-8.3 code = 222) ALBUMIN (test code = 4.1 G/DL 3.5-5.2 2200) CALC GLOBULIN (test 2.7 G/DL 1.9-3.7 code = 2240) CALC A/G RATIO (test 1.5 RATIO 1.0-2.6 code = 2234) BILIRUBIN, TOTAL 0.3 MG/DL See_Comment [Automated message] (test code = 2207) The syste m which generated this result transmit gloria reference range : <=1.2. The refe rence range was not u sed to interpret th is result as normal/abnormal . ALKALINE PHOSPHATASE 99 U/L 40-123 (test code = 2203) AST (test code = 19 U/L 9-50 2217) ALT (test code = 11 U/L 5-50 2218) CBC W/AUTO DIFF WITH [id number] 05:39:50 Test Item Value Reference Range Interpretation Comments WBC (test code = 5.8 K/UL 3.5-11.0 1001) RBC (test code = 5.55 M/UL 4.50-6.10 1002) HEMOGLOBIN (test code 16.1 G/DL 13.5-17.0 = 1003) HEMATOCRIT (test code 46.8 % 40.0-51.0 = 1004) MCV (test code = 84.3 fL 80.0-99.0 1005) MCH (test code = 29.0 PG 25.0-33.0 1006) MCHC (test code = 34.4 G/DL 31.0-36.0 1007) RDW (test code = 13.0 % 11.5-15.0 1038) NEUTROPHILS (test 64.2 % code = 1008) LYMPHOCYTES (test 21.1 % code = 1010) MONOCYTES (test code 9.7 % = 1011) EOSINOPHILS (test 3.6 % code = 1012) BASOPHILS (test code 0.9 % = 1013) IMMATURE GRANULOCYTES 0.5 % (test code = 1036) NUCLEATED RBCS (test 0.0 /100 WBC'S See_Comment [Aut omated code = 1065) message] The sy stem which generated this result transmitted reference range : 0.0. The refere nce range was not u sed to interpret th is result as normal/abnormal . PLATELET COUNT (test 206 K/UL 130-400 code = 1015) ABSOLUTE NEUTROPHILS 3.71 K/UL 1.50-7.50 (test code = 1066) ABSOLUTE LYMPHOCYTES 1.22 K/UL 1.00-4.00 (test code = 1067) ABSOLUTE MONOCYTES 0.56 K/UL 0.20-1.00 (test code = 1068) ABSOLUTE EOSINOPHILS 0.21 K/UL 0.00-0.50 (test code = 1040) ABSOLUTE BASOPHILS 0.05 K/UL 0.00-0.20 (test code = 1069) ABS IMMATURE 0.03 K/UL 0.00-0.10 GRANULOCYTES (test code = 1020) ABS NUCLEATED RBCS 0.00 K/UL 0.00-0.11 (test code = 99280) HEMOGLOBIN [id number] 02:38:01 Test Item Value Reference Range Interpretation Comments HEMOGLOBIN A1c (test 10.4 % 4.2-5.6 H [employer] DIABETES code = 68861) ASSOCIATION IDELINES FOR HGB A1C: PREDIABETES/INC REASED RISK . . . . . . . 5 .7-6.4% DIAGNOSIS OF DI ABETES . . . . . . . . . >=6 .5% WITH CONFIRMATION OR APPROPRIATE SYMPTOMS NOTE: ASSAY MAY BE AFFECTED BY HEMOGLOBINOPATH IES (SICKLE CELL ANEMIA, S- C DISEASE, OTHERS) OR AVEL FICIALLY LOWERED BY DECR EASED RED CELL SURVIVAL ( HEMOLYTIC ANEMIAS, BLOOD LOSS, ETC.). CONSIDER ALTERN ATE TESTING OR LABORATORY C ONSULTATION. HEMOGLOBIN [id number] 04:05:16 Test Item Value Reference Range Interpretation Comments HEMOGLOBIN A1c (test 10.7 % 4.2-5.6 H [employer] DIABETES code = 12633) ASSOCIATION IDELINES FOR HGB A1C: PREDIABETES/INC REASED RISK . . . . . . . 5 .7-6.4% DIAGNOSIS OF DI ABETES . . . . . . . . . >=6 .5% WITH CONFIRMATION OR APPROPRIATE SYMPTOMS NOTE: ASSAY MAY BE AFFECTED BY HEMOGLOBINOPATH IES (SICKLE CELL ANEMIA, S- C DISEASE, OTHERS) OR AVEL FICIALLY LOWERED BY DECR EASED RED CELL SURVIVAL ( HEMOLYTIC ANEMIAS, BLOOD LOSS, ETC.). CONSIDER ALTERN ATE TESTING OR LABORATORY C ONSULTATION. CBC W/AUTO DIFF WITH [id number] 03:57:11 Test Item Value Reference Range Interpretation Comments WBC (test code = 6.4 K/UL 3.5-11.0 1001) RBC (test code = 5.82 M/UL 4.50-6.10 1002) HEMOGLOBIN (test code 16.8 G/DL 13.5-17.0 = 1003) HEMATOCRIT (test code 48.5 % 40.0-51.0 = 1004) MCV (test code = 83.3 fL 80.0-99.0 1005) MCH (test code = 28.9 PG 25.0-33.0 1006) MCHC (test code = 34.6 G/DL 31.0-36.0 1007) RDW (test code = 13.0 % 11.5-15.0 1038) NEUTROPHILS (test 67.8 % NOTE: EFF ECTIVE code = 1008) 08/28/2021, REFERENCE INTER VALS AND FLAGGING FORRELATIVE (%) WBC DIFFERENTIAL WI LL BE ELIMINATED REDUNDANT TOABS OLUTE COUNTS.SEE [email or web address] [email or web address]_reporting _upda te LYMPHOCYTES (test 17.6 % code = 1010) MONOCYTES (test code 9.4 % = 1011) EOSINOPHILS (test 3.6 % code = 1012) BASOPHILS (test code 1.1 % = 1013) IMMATURE GRANYLOCYTES 0.5 % (test code = 1036) NUCLEATED RBCS (test 0.0 /100 See_Comment [Autom ated message] code = 1065) WBC'S The system [employer] generated this result transmit gloria reference range : 0.0. The refere nce range was not u sed to interpret th is result as normal/abnormal . PLATELET COUNT (test 224 K/UL 130-400 code = 1015) ABSOLUTE NEUTROPHILS 4.30 K/UL 1.50-7.50 (test code = 1066) ABSOLUTE LYMPHOCYTES 1.12 K/UL 1.00-4.00 (test code = 1067) ABSOLUTE MONOCYTES 0.60 K/UL 0.20-1.00 (test code = 1068) ABSOLUTE EOSINOPHILS 0.23 K/UL 0.00-0.50 (test code = 1040) ABSOLUTE BASOPHILS 0.07 K/UL 0.00-0.20 (test code = 1069) ABS IMMATURE 0.03 K/UL 0.00-0.10 GRANULOCYTES (test code = 1020) ABS NUCLEATED RBCS 0.00 K/UL 0.00-0.11 (test code = 42394) COMPREHENSIVE METABOLIC [id number] 03:38:21 Test Item Value Reference Range Interpretation Comments GLUCOSE (test code = 206 MG/DL 70-99 H 2216) BUN (test code = 17 MG/DL 6-20 2207) CREATININE (test 0.92 MG/DL 0.80-1.40 EFFECTIVE code = 2214) 09/18/2021, [facility] HAS IMPLEMENTED THE NKF-ASN RECOMME NDED KD-EPI EGF R REFIT CALCULATI ON THAT DOES NOT INCLUDE A COEFFICIENT FOR RACE. FOR MORE INFORMATION, SE E ANNOUNCEMENT [email or web address]_CALC eGFR (2020 CKD-EPI) 98 ML/MIN/1.73 >60 (test code = 06950) CALC BUN/CREAT (test 18 RATIO 6-28 code = 2235) SODIUM (test code = 141 MEQ/L 216-425 5293) POTASSIUM (test code 4.7 MEQ/L 3.5-5.4 = 2227) CHLORIDE (test code 104 MEQ/L 95-107 = 221) CARBON DIOXIDE (test 25 MEQ/L 19-31 code = 2206) CALCIUM (test code = 9.5 MG/DL 8.5-10.5 2208) PROTEIN, TOTAL (test 7.2 G/DL 6.1-8.3 code = 2229) ALBUMIN (test code = 4.5 G/DL 3.5-5.2 2200) CALC GLOBULIN (test 2.7 G/DL 1.9-3.7 code = 2240) CALC A/G RATIO (test 1.7 RATIO 1.0-2.6 code = 2234) BILIRUBIN, TOTAL 0.3 MG/DL See_Comment [Automated message] (test code = 2207) The syste m which generated this result transmit gloria reference range : <=1.2. The refe rence range was not u sed to interpret th is result as normal/abnormal . ALKALINE PHOSPHATASE 95 U/L 40-123 (test code = 2204) AST (test code = 19 U/L 9-50 2217) ALT (test code = 13 U/L 5-50 2218) LIPID [id number] 03:38:21 Test Item Value Reference Range Interpretation Comments CHOLESTEROL (test 198 MG/DL <200 code = 2210) TRIGLYCERIDES (test 185 MG/DL <150 H code = 2232) HDL CHOLESTEROL (test 39 MG/DL >39 L code = 2220) CALC LDL CHOL (test 128 MG/DL <100 H NOTE: C ALCULATED LDL code = 2237) IS BASED ON MAGALYS-WADE METHOD WHICHINCLUDES ADJUSTABLE TRIGLYCERIDE:VL DL CHOLESTEROL RAT IO.THIS FACTOR VARIES B Y MEASURED TRIGLY CERIDE AND NON-HDLCHOL ESTEROL CONCENTRATIONS WITH INCREASED CALCU LATED LDL SEENIN HIGH ER TRIGLYCERIDE OR LOWER NON-HDL SPECIME NS. FOR MOREINFORMATION , SEE CLIENT ANNOUNCE MENT AT [email or web address] RISK RATIO LDL/HDL 3.28 RATIO <3.55 UNLESS O THERWISE (test code = 2238) INDICATED , ALL TESTING PERFORMED [facility], [id number] [place] [address] DIRECTOR: DENEEN VU M.D. CLIA NUMBER [id number] CAP ACCREDITATION N O. [id number] TISSUE [id number] 09:09:00Surgical Pathology Report Case: [id number] Authorizing Provider: Jesus Alberto Christian, Collected: 03/31/2018 0950 Ordering Location: [address] Received: 03/31/2018 1533 Service Pathologist: Oscar [...] IS NEGATIVE. Signing Pathologist Direct Phone Line: [phone] signed by Oscar Rosario MD on 04/04/2018 at 9:09 AMPreliminary result electronically signed by Oscar Rosario MD on 04/03/2018 at 10:25 [id number], [id number], [id number] bleed, rule out H. Pylori A. Gastric ulcer biopsy. B. Random gastric biopsy Specimen is received in two containers of formalin both labeled with the patient's information.Specimen A: Labeled "gastric ulcer biopsy" consists of multiple fragments of starr tissue ranging from 0.1 to 0.5 cm, submittedin A1.Specimen B: Labeled "random gastric biopsy" consists of multiple small fragments of starr tissueranging from less than 0.1 to 0.3 cm, submitted in B1. CG/ew PERFORMED.The following special studies were performed on this case and the interpretation is incorporated in the diagnostic report above:BLOCK A1- GMS, PAS, LAURA GARCIA, HELICOBACTER IMMUNOSTAINBLOCK B1- LAURA GRACIA, HELICOBACTER IMMUNOSTAINThe immunohistochemistry test was developed and its performance characteristics determined by [facility], Pathology Laboratory. It has not been cleared or approved by the U.S. Food and Drug Administration. The FDA has determined that such clearance or approval is not necessary.The test is used for clinical purposes. It should not be regarded as investigational or for research. This laboratory is certified under the Clinical Laboratory Improvement Amendments of 1988 (CLIA-88)as qualified to perform high complexity clinical laboratory testing.PERIPHERAL BLOOD SMEAR - PATHOLOGIST [id number] 14:15:00 Test Item Value Reference Range Interpretation Comments PERIPHERAL SMR REVIEW Cell counts confirmed. ([facility]) (test code = 2640) [id number] Madelyn Franco M.D. ([facility]) (test code = (electronic signature) 0985) POCT-GLUCOSE [id number] 12:34:00 Test Item Value Reference Range Interpretation Comments POC-GLUCOSE METER 194 mg/dL 70-[address] [facility] 67[address] ([facility]) (test code = [facility]NA [facility] 1538) [address] POCT-GLUCOSE [id number] 10:43:00 Test Item Value Reference Range Interpretation Comments POC-GLUCOSE METER 205 mg/dL 70-[address] [facility] 67[address] ([facility]) (test code = JONNA Due[facility] 1538) [address] HEMOGLOBIN [id number] 08:47:00 Test Item Value Reference Range Interpretation Comments HEMOGLOBIN A1C ([facility]) (test code = 8.4 % 4.3-6.1 H 368) [id number] 08:25:00 Test Item Value Reference Range Interpretation Comments HAPTOGLOBIN (BEAKER) (test code = 165 mg/dL 14-258 366) POCT-GLUCOSE [id number] 08:10:00 Test Item Value Reference Range Interpretation Comments POC-GLUCOSE METER 174 mg/dL 70-[address] [facility] 67[address] (BEAKER) (test code = [place]NA [place] 1532) [address] CBC W/PLT COUNT & AUTO [id number] 07:36:00 Test Item Value Reference Range Interpretation Comments WHITE BLOOD CELL COUNT (BEAKER) 4.9 K/ L 3.5-10.5 (test code = 775) RED BLOOD CELL COUNT (BEAKER) 3.58 M/ L 4.63-6.08 L (test code = 761) HEMOGLOBIN (BEAKER) (test code = 8.4 GM/DL 13.7-17.5 L 410) HEMATOCRIT (BEAKER) (test code = 27.2 % 40.1-51.0 L 411) MEAN CORPUSCULAR VOLUME (BEAKER) 76.0 fL 79.0-92.2 L (test code = 753) MEAN CORPUSCULAR HEMOGLOBIN 23.5 pg 25.7-32.2 L (BEAKER) (test code = 751) MEAN CORPUSCULAR HEMOGLOBIN CONC 30.9 GM/DL 32.3-36.5 L (BEAKER) (test code = 752) RED CELL DISTRIBUTION WIDTH 19.4 % 11.6-14.4 H (BEAKER) (test code = 412) PLATELET COUNT (BEAKER) (test 241 K/CU MM 150-450 code = 756) MEAN PLATELET VOLUME (BEAKER) 10.3 fL 9.4-12.4 (test code = 754) NUCLEATED RED BLOOD CELLS 0 /100 WBC 0-0 (BEAKER) (test code = 413) NEUTROPHILS RELATIVE PERCENT 62 % (BEAKER) (test code = 429) LYMPHOCYTES RELATIVE PERCENT 21 % (BEAKER) (test code = 430) MONOCYTES RELATIVE PERCENT 11 % (BEAKER) (test code = 431) EOSINOPHILS RELATIVE PERCENT 5 % (BEAKER) (test code = 432) BASOPHILS RELATIVE PERCENT 1 % (BEAKER) (test code = 437) NEUTROPHILS ABSOLUTE COUNT 3.07 K/ L 1.78-5.38 (BEAKER) (test code = 670) LYMPHOCYTES ABSOLUTE COUNT 1.05 K/ L 1.32-3.57 L (BEAKER) (test code = 414) MONOCYTES ABSOLUTE COUNT (BEAKER) 0.52 K/ L 0.30-0.82 (test code = 415) EOSINOPHILS ABSOLUTE COUNT 0.25 K/ L 0.04-0.54 (BEAKER) (test code = 416) BASOPHILS ABSOLUTE COUNT (BEAKER) 0.03 K/ L 0.01-0.08 (test code = 417) IMMATURE GRANULOCYTES-RELATIVE 0 % 0-1 PERCENT (BEAKER) (test code = 2801) IRON, TIBC, % SAT. (WITHOUT FERRITIN)2018-03-31 07:20:00 Test Item Value Reference Range Interpretation Comments IRON (BEAKER) (test code = 547) 17 ug/dL 40-160 L TOTAL IRON BINDING CAPACITY 395 ug/dL 250-450 (BEAKER) (test code = 769) IRON % SATURATION (2) (BEAKER) 4 % 20-55 L (test code = 2590) [id number] 07:16:00 Test Item Value Reference Range Interpretation Comments FERRITIN (BEAKER) (test code = 361) 11 ng/mL 5-275 LACTATE DEHYDROGENASE (LDH)2018-03-31 07:05:00 Test Item Value Reference Range Interpretation Comments LACTATE DEHYDROGENASE (BEAKER) (test 166 U/L 125-220 code = 635) HEMOGLOBIN AND [id number] 06:38:00 Test Item Value Reference Range Interpretation Comments HEMOGLOBIN (BEAKER) (test code = 8.3 GM/DL 13.7-17.5 L 410) HEMATOCRIT (BEAKER) (test code = 26.8 % 40.1-51.0 L 411) POCT-GLUCOSE [id number] 06:15:00 Test Item Value Reference Range Interpretation Comments POC-GLUCOSE METER 183 mg/dL 70-[address] [facility] 67[address] (BEAKER) (test code = JONNA KUMAR 1538) [id number] POCT-GLUCOSE [id number] 21:58:00 Test Item Value Reference Range Interpretation Comments POC-GLUCOSE METER 254 mg/dL 70-[address] [facility] 6720 (BEAKER) (test code = JONNA KUMAR 1538) [id number] PROTHROMBIN [id number] 20:06:00 Test Item Value Reference Range Interpretation Comments PROTIME (BEAKER) (test code = 14.3 seconds 11.7-14.7 759) INR (BEAKER) (test code = 370) 1.1 <=5.9 RECOMMENDED COUMADIN/WARFARIN INR THERAPY RANGESSTANDARD DOSE: 2.0 - 3.0 Includes: PROPHYLAXIS for venous thrombosis, systemic embolization; TREATMENT for venous thrombosis and/or pulmonary embolus.HIGH RISK: Target INR is 2.5-3.5 for patients with mechanical heart valves.HEPATIC FUNCTION [id number] 19:25:00 Test Item Value Reference Range Interpretation Comments TOTAL PROTEIN (BEAKER) (test code = 5.9 gm/dL 6.0-8.3 L 770) ALBUMIN (BEAKER) (test code = 1145) 3.5 g/dL 3.5-5.0 BILIRUBIN TOTAL (BEAKER) (test code 0.5 mg/dL 0.2-1.2 = 377) BILIRUBIN DIRECT (BEAKER) (test 0.2 mg/dL 0.1-0.5 code = 706) ALKALINE PHOSPHATASE (BEAKER) (test 80 U/L 40-150 code = 346) AST (SGOT) (BEAKER) (test code = 12 U/L 5-34 353) ALT (SGPT) (BEAKER) (test code = 6 U/L 6-55 347) BASIC METABOLIC [id number] 19:25:00 Test Item Value Reference Range Interpretation Comments SODIUM (BEAKER) 137 meq/L 136-145 (test code = 381) POTASSIUM (BEAKER) 4.1 meq/L 3.5-5.1 (test code = 379) CHLORIDE (BEAKER) 108 meq/L 98-107 H (test code = 382) CO2 (BEAKER) (test 23 meq/L 22-29 code = 355) BLOOD UREA NITROGEN 14 mg/dL 7-21 (BEAKER) (test code = 354) CREATININE (BEAKER) 0.72 mg/dL 0.57-1.25 (test code = 358) GLUCOSE RANDOM 163 mg/dL 70-105 H (BEAKER) (test code = 652) CALCIUM (BEAKER) 8.2 mg/dL 8.4-10.2 L (test code = 697) EGFR (BEAKER) (test 114 mL/min/1.73 ESTIM ATED GFR IS code = 1092) sq m NOT ACCURATE CREATININE CLEARANCE IN PREDICTING GLOMERULAR FILTRATION RATE . ESTIMATED GFR I S NOT APPLICABLE FOR DIALYSIS PATIEN TS. CBC W/PLT COUNT & AUTO [id number] 19:16:00 Test Item Value Reference Range Interpretation Comments WHITE BLOOD CELL COUNT (BEAKER) 5.2 K/ L 3.5-10.5 (test code = 775) RED BLOOD CELL COUNT (BEAKER) 3.02 M/ L 4.63-6.08 L (test code = 761) HEMOGLOBIN (BEAKER) (test code = 6.6 GM/DL 13.7-17.5 L 410) HEMATOCRIT (BEAKER) (test code = 22.6 % 40.1-51.0 L 411) MEAN CORPUSCULAR VOLUME (BEAKER) 74.8 fL 79.0-92.2 L (test code = 753) MEAN CORPUSCULAR HEMOGLOBIN 21.9 pg 25.7-32.2 L (BEAKER) (test code = 751) MEAN CORPUSCULAR HEMOGLOBIN CONC 29.2 GM/DL 32.3-36.5 L (BEAKER) (test code = 752) RED CELL DISTRIBUTION WIDTH 19.7 % 11.6-14.4 H (BEAKER) (test code = 412) PLATELET COUNT (BEAKER) (test 234 K/CU MM 150-450 code = 756) MEAN PLATELET VOLUME (BEAKER) 10.3 fL 9.4-12.4 (test code = 754) NUCLEATED RED BLOOD CELLS 0 /100 WBC 0-0 (BEAKER) (test code = 413) NEUTROPHILS RELATIVE PERCENT 63 % (BEAKER) (test code = 429) LYMPHOCYTES RELATIVE PERCENT 23 % (BEAKER) (test code = 430) MONOCYTES RELATIVE PERCENT 10 % (BEAKER) (test code = 431) EOSINOPHILS RELATIVE PERCENT 4 % (BEAKER) (test code = 432) BASOPHILS RELATIVE PERCENT 0 % (BEAKER) (test code = 437) NEUTROPHILS ABSOLUTE COUNT 3.29 K/ L 1.78-5.38 (BEAKER) (test code = 670) LYMPHOCYTES ABSOLUTE COUNT 1.18 K/ L 1.32-3.57 L (BEAKER) (test code = 414) MONOCYTES ABSOLUTE COUNT (BEAKER) 0.52 K/ L 0.30-0.82 (test code = 415) EOSINOPHILS ABSOLUTE COUNT 0.21 K/ L 0.04-0.54 (BEAKER) (test code = 416) BASOPHILS ABSOLUTE COUNT (BEAKER) 0.02 K/ L 0.01-0.08 (test code = 417) IMMATURE GRANULOCYTES-RELATIVE 0 % 0-1 PERCENT (BEAKER) (test code = 2805)
--- NOTE | 2022-09-26 20:38 | RAD REPORT ---
EXAM DESCRIPTION: RAD - Ankle Left 3 View -09/26/2022 8:29 pm CLINICAL HISTORY: Left ankle pain status post injury FINDINGS: No fracture or dislocation is seen. Soft tissue swelling
--- NOTE | 2022-09-26 20:40 | RAD REPORT ---
EXAM DESCRIPTION: RAD - Foot Left 3 View - 09/26/2022 8:29 pm CLINICAL HISTORY: Left Foot pain FINDINGS: No fracture or dislocation is seen. Hallux valgus deformity. Prominent spurs extend off the posterior aspect of the calcaneus as well as the dorsal aspect of lake cular cuneiform joint
--- NOTE | 2022-09-26 20:46 | ER ---
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 It has turned red over time and became painful. Coronavirus screen: Vaccine status: Patient reports receiving the 2nd dose of the covid vaccine. Ebola Screen: Patient denies travel to an Ebola-affected area in the 21 days before illness onset. Initial Sepsis Screen: Does the patient meet any 2 criteria? No. Patient's initial sepsis screen is negative. Does the patient have a suspected source of infection? No. Patient's initial sepsis screen is negative. Risk Assessment: Do you want to hurt yourself or someone else? Patient reports no desire to harm self or others. Onset of symptoms was September 26, 2022. 19:53 Method Of Arrival: Ambulatory kr3 19:53 Acuity: YA 4 kr3 Triage Assessment: 19:56 General: Appears in no apparent distress. uncomfortable, Behavior is calm, cooperative, kr3 appropriate for age. Pain: Complains of pain in left foot and anterior aspect of left ankle. EENT: No signs and/or symptoms were reported regarding the EENT system. Neuro: Level of Consciousness is awake, alert, obeys commands, Oriented to person, place, time, situation. Cardiovascular: Patient's skin is warm and dry. Respiratory: Airway is patent Respiratory effort is even, unlabored, Respiratory pattern is regular, symmetrical. GI: No signs and/or symptoms were reported involving the gastrointestinal system. : No signs and/or symptoms were reported regarding the genitourinary system. Derm: No signs and/or symptoms reported regarding the dermatologic system. Musculoskeletal: Circulation, motion, and sensation intact. Injury Description:. Historical: - Allergies: 19:56 NKA; kr3 - PMHx: 19:56 Diabetes - IDDM; Hyperlipidemia; Hypertension; kr3 - Immunization history:: Adult Immunizations not up to date. - Social history:: Smoking status: Patient reports the use of cigarette tobacco products, smokes one pack cigarettes per day. Screenin:02 [facility] ED Fall Risk Assessment (Adult) History of falling in the last 3 months, kr3 including since admission No falls in past 3 months (0 pts) Confusion or Disorientation No (0 pts) Intoxicated or Sedated No (0 pts) Impaired Gait No (0 pts) Mobility Assist Device Used No (0 pt) Altered Elimination No (0 pt) Score/Fall Risk Level 0 - 2 = Low Risk. Abuse screen: Denies threats or abuse. Nutritional screening: No deficits noted. Tuberculosis screening: No symptoms or risk factors identified. Assessment: 21:02 Reassessment: No changes from previously documented assessment. Patient and/or family kr3 updated on plan of care and expected duration. Pain level reassessed. Patient is alert, oriented x 3, equal unlabored respirations, skin warm/dry/pink. Vital Signs: 19:53 BP 164 / 96; Pulse 88; Resp 18; Temp 96.3(O); Pulse Ox 99% on R/A; Weight 97.52 kg; kr3 Height 5 ft. 10 in. (177.80 cm); Pain 7/10; 21:02 BP 180 / 94; Pulse 89; Resp 20; Pulse Ox 100% on R/A; kr3 19:53 Body Mass Index 30.85 (97.52 kg, 177.80 cm) kr3 ED Course: 18:31 Patient arrived in ED. mr 18:53 Ariadna Melany, HACKSAW INSPECTOR [facility] 18:53 Jeanmarie Kruger MD is Attending Physician. 7 19:48 Elsie Lujan, RN is Primary Nurse. bb 19:53 Devika Mendoza, REID is Primary Nurse. kr3 19:56 Triage completed. kr3 19:58 Arm band placed on Patient placed in a hallway bed, in view of staff members. kr3 20:13 X-ray completed. Portable x-ray completed in exam room. Patient tolerated procedure mh1 well. 20:31 Foot Left 3 View XRAY In Process Unspecified. EDMS 20:31 Ankle Left 3 View XRAY In Process Unspecified. EDMS 21:03 No provider procedures requiring assistance completed. Patient did not have IV access kr3 during this emergency room visit. 21:04 in chair in rashid. kr3 Administered Medications: 20:48 Drug: traMADol 50 mg Route: PO; kr3 21:14 Follow up: Response: No adverse reaction; RASS: Alert and Calm (0) kr3 Medication: 21:04 VIS not applicable for this client. kr3 Outcome: 20:45 Discharge ordered by MD. last 21:04 Discharged to home ambulatory. kr3 21:04 Condition: stable 21:04 Discharge instructions given to patient, Instructed on discharge instructions, follow up and referral plans. medication usage, Demonstrated understanding of instructions, follow-up care, medications, Prescriptions given X 1. 21:11 Patient left the ED. kr3 Signatures: Dispatcher [employer] EDMS Marci Mallory, HACKSAW INSPECTOR-C HACKSAW INSPECTOR-Csnw Elyssa Mortensen mr EvertonMichelle 1 Elsie Lujan, RN RN Melany Williamson, HACKSAW INSPECTOR HACKSAW INSPECTOR jh7 Devika Mendoza RN RN kr3
--- NOTE | 2022-09-26 20:46 | EDPHYS ---
Physician Documentation [facility] Name: Maryam Whitfield Age: 57 yrs Sex: Male : 1965 Arrival Date: 09/26/2022 Time: 18:31 Bed DIS3 Private MD: ED Physician Jeanmarie Kruger HPI: 09/26 18:55 This 57 yrs old Male presents to ER via Unassigned with complaints of Foot jh7 Injury. 18:55 The patient presents with an injury. The complaints affect the anterior aspect of left jh7 ankle and dorsum of left foot. 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 Onset: The symptoms/episode began/occurred today. Associated signs and symptoms: Pertinent positives: swelling, Pertinent negatives calf tenderness, fever, tingling. Patient reports that at 4 PM today a society editor tray fell on top of his left foot while he was at work. Reports pain at the anterior ankle and dorsum of the foot. He noticed that his foot began to swell and he decided to come in to get it checked. History of diabetes.. Historical: - Allergies: 19:56 NKA; kr3 - PMHx: 19:56 Diabetes - IDDM; Hyperlipidemia; Hypertension; kr3 - Immunization history:: Adult Immunizations not up to date. - Social history:: Smoking status: Patient reports the use of cigarette tobacco products, smokes one pack cigarettes per day. ROS: 18:55 Constitutional: Negative for fever, chills, and weight loss, Neck: Negative for injury, jh7 pain, and swelling, Cardiovascular: Negative for chest pain, palpitations, and edema, Respiratory: Negative for shortness of breath, cough, wheezing, and pleuritic chest pain, Abdomen/GI: Negative for abdominal pain, nausea, vomiting, diarrhea, and constipation, Back: Negative for injury and pain, Skin: Negative for injury, rash, and discoloration, Neuro: Negative for headache, weakness, numbness, tingling, and seizure. 18:55 MS/extremity: Positive for contusion, pain. 18:55 All other systems are negative. Exam: 18:55 Constitutional: This is a well developed, well nourished patient who is awake, alert, jh7 and in no acute distress. Head/Face: Normocephalic, atraumatic. Neck: Trachea midline, no thyromegaly or masses palpated, and no cervical lymphadenopathy. Supple, full range of motion without nuchal rigidity, or vertebral point tenderness. No Meningismus. Cardiovascular: Regular rate and rhythm with a normal S1 and S2. No gallops, murmurs, or rubs. Normal PMI, no JVD. No pulse deficits. Respiratory: Lungs have equal breath sounds bilaterally, clear to auscultation and percussion. No rales, rhonchi or wheezes noted. No increased work of breathing, no retractions or nasal flaring. Back: No spinal tenderness. No costovertebral tenderness. Full range of motion. Skin: Warm, dry with normal turgor. Normal color with no rashes, no lesions, and no evidence of cellulitis. Neuro: Awake and alert, GCS 15, oriented to person, place, time, and situation. Motor strength 5/5 in all extremities. Sensory grossly intact. Normal gait. 18:55 Musculoskeletal/extremity: ROM: limited active range of motion due to pain, in the left foot, Pulses: are normal with no appreciated deficits, Sensation intact. Weight bearing: able to fully bear weight, Limping gait. Vital Signs: 19:53 BP 164 / 96; Pulse 88; Resp 18; Temp 96.3(O); Pulse Ox 99% on R/A; Weight 97.52 kg; kr3 Height 5 ft. 10 in. (177.80 cm); Pain 7/10; 21:02 BP 180 / 94; Pulse 89; Resp 20; Pulse Ox 100% on R/A; kr3 19:53 Body Mass Index 30.85 (97.52 kg, 177.80 cm) kr3 MDM: 18:54 Patient medically screened. 7 20:47 Data reviewed: vital signs, nurses notes. Data interpreted: Pulse oximetry: on room air snw is 99 %. Interpretation: normal. Counseling: I had a detailed discussion with the patient and/or guardian regarding: the historical points, exam findings, and any diagnostic results supporting the discharge/admit diagnosis, the presence of at least one elevated blood pressure reading (>120/80) during this emergency department visit, radiology results, the need for outpatient follow up, to return to the emergency department if symptoms worsen or persist or if there are any questions or concerns that arise at home. Response to treatment: the patient's symptoms have mildly improved after treatment. Special discussion: I have referred the patient to see his PCP for further evaluation of high blood pressure. Based on the history and exam findings, there is no indication for further emergent testing or inpatient evaluation. I discussed with the patient/guardian the need to see the foot piece assembler for further evaluation of the symptoms. I discussed with the patient/guardian the need to see the primary care provider for further evaluation of the symptoms. 09/26 18:53 Order name: Foot Left 3 View XRAY; Complete Time: 20:44 jh7 09/26 18:53 Order name: Ankle Left 3 View XRAY; Complete Time: 20:44 jh7 Administered Medications: 20:48 Drug: traMADol 50 mg Route: PO; kr3 21:14 Follow up: Response: No adverse reaction; RASS: Alert and Calm (0) kr3 Disposition: 09/27 12:35 Co-signature as Attending Physician, Jeanmarie Kruger MD I agree with the assessment and rt plan of care. Disposition Summary: 09/26/22 20:45 Discharge Ordered Location: Home snw Condition: Stable snw Diagnosis - Crushing injury of foot snw Followup: snw - With: Emergency Department - When: As needed - Reason: Worsening of condition Followup: snw - With: Private Physician - When: 2 - 3 days - Reason: Recheck today's complaints, Continuance of care, Re-evaluation by your physician Discharge Instructions: - Discharge Summary Sheet snw - Diabetes Mellitus and Foot Care snw - Form - Daily Diabetes Record snw - Blood Glucose Monitoring, Adult snw - Foot Pain snw - Foot Care, Adult snw Forms: - Medication Reconciliation Form snw - Thank You Letter snw - Antibiotic Education snw - Prescription Opioid Use snw - Work release form snw Prescriptions: - Tramadol 50 mg Oral Tablet - take 1 tablet by ORAL route every 8 hours as needed; 9 tablet; Refills: 0, snw Product Selection Permitted Signatures: Dispatcher [employer] EDMarci Love FNP-C COUNTER CASER-Csnw Melany Rosenthal FNP COUNTER CASER 7 Devika Mendoza RN RN kr3 Jeanmarie Kruger, MD CEDENO rt
[2022-09-26] MEDS ORDERED: TRAMADOL HCL 50 MG TAB ONE (20:47)
[2022-09-26 21:17] VITALS: TEMP 96.3
[2022-09-26 21:18] VITALS: BP 180/94; O2SAT 100
== END 2022-09-26 21:11 | disposition home or self-care (01) ==
LOC: ER 18:26
DX: S97.82XA Crushing injury of left foot, initial encounter (principal); F17.210 Nicotine dependence, cigarettes, uncomplicated